=== PATIENT | female | born 1960 | race Asian ===

== ENCOUNTER 2020-04-20 09:21 | Outpatient (REF) | payer BC, SELFPAY ==
[2020-04-20 10:10] LABS: MANUAL DIFF FLAG NO
[2020-04-20 10:15] LABS: Basophils Percent Auto 0.3 % (0-2); Eosinophils Absolute Auto 0.2 X10*3/uL (0.0-0.4); Eosinophils Percent Auto 1.9 % (0-4); Hematocrit 41.5 % (37-47); Hemoglobin 13.8 g/dl (12.0-16.0); Imm Gran Abs Auto 0.02 X10*3/uL (0.00-0.03); Imm Gran Pct Auto 0.2 % (0.0-0.4); Lymphocytes Absolute Auto 1.8 X10*3/uL (1.2-4.9); Lymphocytes Percent Auto 19.3 % (20-40); Mean Corpuscular HGB Conc 33.3 g/dl (31.0-35.0); Mean Corpuscular Hemoglobin 28.6 pg (27.0-33.0); Mean Corpuscular Volume 85.9 fL (80-98); Mean Platelet Volume 9.7 fL (9.4-12.3); Monocytes Absolute Auto 0.5 X10*3/uL (0.1-1.2); Monocytes Percent Auto 5.7 % (2-11); Neutrophils Absolute Auto 6.8 X10*3/uL (2.0-8.3); Neutrophils Percent Auto 72.6 % (45-73); Platelet Count 254 X10*3/uL (160-400); Red Blood Count 4.83 X10*6/uL (4.20-5.50); Red Cell Distribution Width 11.9 % (11.0-16.0); White Blood Count 9.4 X10*3/uL (4.8-10.8)
[2020-04-20 10:41] LABS: Alanine Aminotransferase 73 U/L (0-31); Albumin Level 4.5 g/dL (3.5-5.0); Alkaline Phosphatase 72 U/L (39-117); Anion Gap 16 (12-20); Aspartate Amino Transferase 32 U/L (5-31); Bilirubin Total 0.9 mg/dL (0.0-1.0); Blood Urea Nitrogen 12 mg/dL (9-16); Calcium 9.3 mg/dL (8.4-10.2); Carbon Dioxide 27 mmol/L (22-29); Chloride 102 mmol/L (96-108); Cholesterol 191 mg/dL; Estimated Glomerular Filt Rate > 60; Glucose Fasting 103 mg/dL (60-99); HDL Cholesterol 58 mg/dL; LDL Cholesterol Calculated 83 mg/dl; Potassium 3.5 mmol/L (3.3-5.1); Sodium 141 mmol/L (135-145); Total Protein 7.1 g/dL (6.5-8.0); Triglycerides 254 mg/dL
[2020-04-20 10:44] LABS: Glucose Urine UA NEG (NEG); Leukocyte Esterase Urine NEG (NEG); Nitrite Urine NEG (NEG); PH 6.5 (5.0-8.0); Specific Gravity - Urine <= 1.005 (1.005-1.025); Urine Blood NEG (NEG); Urine Ketones NEG (NEG); Urine Protein NEG (NEG-TRACE)
[2020-04-20 10:46] LABS: Appearance Urine CLEAR; Color Urine YELLOW
[2020-04-20 11:02] LABS: Vitamin D 25-OH Total 38.2 ng/mL (>30)
== END 2020-04-20 09:22 | disposition home or self-care (01) ==
LOC: HO.LAB 09:21
PROVIDERS: PCP Internal Medicine; Visit Provider Internal Medicine
DX: I10 Essential (primary) hypertension (principal); J30.9 Allergic rhinitis, unspecified; E78.00 Pure hypercholesterolemia, unspecified; R73.01 Impaired fasting glucose; E55.9 Vitamin D deficiency, unspecified
CPT/HCPCS: 36415; 80053; 80061; 81003; 82306; 85025

== ENCOUNTER 2020-08-17 10:16 | Outpatient (REF) | payer BC, SELFPAY ==
[2020-08-17 11:00] LABS: MANUAL DIFF FLAG NO
[2020-08-17 11:03] LABS: Glucose Urine UA NEG (NEG); Leukocyte Esterase Urine 1+ (NEG); Nitrite Urine NEG (NEG); PH 7.5 (5.0-8.0); UACC Culture Trigger YES; Urine Blood NEG (NEG); Urine Ketones NEG (NEG); Urine Protein NEG (NEG-TRACE)
[2020-08-17 11:04] LABS: Basophils Percent Auto 0.7 % (0-2); Eosinophils Absolute Auto 0.2 X10*3/uL (0.0-0.4); Eosinophils Percent Auto 3.6 % (0-4); Hematocrit 40.8 % (37-47); Hemoglobin 13.6 g/dl (12.0-16.0); Imm Gran Abs Auto 0.01 X10*3/uL (0.00-0.03); Imm Gran Pct Auto 0.2 % (0.0-0.4); Lymphocytes Absolute Auto 1.8 X10*3/uL (1.2-4.9); Mean Corpuscular HGB Conc 33.3 g/dl (31.0-35.0); Mean Corpuscular Hemoglobin 29.1 pg (27.0-33.0); Mean Corpuscular Volume 87.4 fL (80-98); Mean Platelet Volume 9.7 fL (9.4-12.3); Monocytes Absolute Auto 0.4 X10*3/uL (0.1-1.2); Monocytes Percent Auto 9.4 % (2-11); Neutrophils Absolute Auto 2.1 X10*3/uL (2.0-8.3); Neutrophils Percent Auto 46.1 % (45-73); Platelet Count 267 X10*3/uL (160-400); Red Blood Count 4.67 X10*6/uL (4.20-5.50); Red Cell Distribution Width 12.1 % (11.0-16.0); White Blood Count 4.5 X10*3/uL (4.8-10.8)
[2020-08-17 11:07] LABS: Appearance Urine CLEAR; Color Urine YELLOW
[2020-08-17 11:13] LABS: Estimated Average Glucose 126 mg/dL
[2020-08-17 11:14] LABS: Bacteria Urine TRACE /LPF; RBC Urine 0-2 /HPF (0); Squamous Epithelial Cell Urine 1+ /LPF
[2020-08-17 11:25] LABS: Alanine Aminotransferase 74 U/L (0-31); Albumin Level 4.3 g/dL (3.5-5.0); Alkaline Phosphatase 78 U/L (39-117); Anion Gap 13 (12-20); Aspartate Amino Transferase 34 U/L (5-31); Bilirubin Total 0.8 mg/dL (0.0-1.0); Blood Urea Nitrogen 11 mg/dL (9-16); Calcium 9.8 mg/dL (8.4-10.2); Carbon Dioxide 29 mmol/L (22-29); Chloride 105 mmol/L (96-108); Cholesterol 191 mg/dL; Estimated Glomerular Filt Rate > 60; Glucose Fasting 108 mg/dL (60-99); HDL Cholesterol 50 mg/dL; LDL Cholesterol Calculated 63 mg/dl; Potassium 4.3 mmol/L (3.3-5.1); Sodium 143 mmol/L (135-145); Total Protein 6.8 g/dL (6.5-8.0); Triglycerides 392 mg/dL
[2020-08-17 11:46] LABS: TSH reflex Free T4 0.55 uIU/mL (0.32-4.0)
== END 2020-08-17 10:17 | disposition home or self-care (01) ==
LOC: HO.LAB 10:16
PROVIDERS: PCP Internal Medicine; Visit Provider Internal Medicine
DX: R73.01 Impaired fasting glucose (principal); I10 Essential (primary) hypertension; E78.00 Pure hypercholesterolemia, unspecified; R79.89 Other specified abnormal findings of blood chemistry; E66.3 Overweight
CPT/HCPCS: 36415; 80053; 80061; 81001; 81003; 83036; 84443; 85025; 87086

== ENCOUNTER 2020-12-21 10:16 | Outpatient (REF) | payer BC, SELFPAY ==
[2020-12-21 10:55] LABS: MANUAL DIFF FLAG NO
[2020-12-21 11:01] LABS: Eosinophils Absolute Auto 0.2 X10*3/uL (0.0-0.4); Eosinophils Percent Auto 4.5 % (0-4); Hematocrit 41.3 % (37-47); Hemoglobin 13.8 g/dl (12.0-16.0); Imm Gran Abs Auto 0.01 X10*3/uL (0.00-0.03); Imm Gran Pct Auto 0.2 % (0.0-0.4); Lymphocytes Absolute Auto 1.6 X10*3/uL (1.2-4.9); Mean Corpuscular HGB Conc 33.4 g/dl (31.0-35.0); Mean Corpuscular Hemoglobin 28.8 pg (27.0-33.0); Mean Platelet Volume 9.8 fL (9.4-12.3); Monocytes Absolute Auto 0.4 X10*3/uL (0.1-1.2); Neutrophils Absolute Auto 1.9 X10*3/uL (2.0-8.3); Neutrophils Percent Auto 46.3 % (45-73); Platelet Count 287 X10*3/uL (160-400); Red Cell Distribution Width 12.2 % (11.0-16.0); White Blood Count 4.2 X10*3/uL (4.8-10.8)
[2020-12-21 11:02] LABS: Appearance Urine CLEAR; Color Urine YELLOW; Glucose Urine UA NEG (NEG); Leukocyte Esterase Urine TRACE (NEG); Nitrite Urine NEG (NEG); UACC Culture Trigger YES; Urine Blood NEG (NEG); Urine Ketones NEG (NEG); Urine Protein TRACE MG/DL (NEG-TRACE)
[2020-12-21 11:16] LABS: Estimated Average Glucose 123 mg/dL; Hemoglobin A1C 148.5724 umol/L; Hemoglobin A1c % 5.9 %
[2020-12-21 11:19] LABS: RBC Urine 0 /HPF (0); Squamous Epithelial Cell Urine TRACE /LPF; WBC Urine 0-2 /HPF (0-4)
[2020-12-21 14:05] LABS: Alanine Aminotransferase 47 U/L (0-31); Albumin Level 4.6 g/dL (3.5-5.0); Alkaline Phosphatase 75 U/L (39-117); Anion Gap 14 (12-20); Aspartate Amino Transferase 24 U/L (5-31); Bilirubin Total 0.6 mg/dL (0.0-1.0); Blood Urea Nitrogen 8 mg/dL (9-16); Calcium 9.8 mg/dL (8.4-10.2); Carbon Dioxide 26 mmol/L (22-29); Chloride 104 mmol/L (96-108); Cholesterol 175 mg/dL; Estimated Glomerular Filt Rate > 60; Glucose Fasting 104 mg/dL (60-99); HDL Cholesterol 54 mg/dL; LDL Cholesterol Calculated 85 mg/dl; Potassium 3.9 mmol/L (3.3-5.1); Sodium 140 mmol/L (135-145); Total Protein 7.2 g/dL (6.5-8.0); Triglycerides 184 mg/dL
[2020-12-21 14:18] LABS: Uric Acid 6.9 mg/dL (2.4-5.7)
[2020-12-21 14:23] LABS: TSH reflex Free T4 0.74 uIU/mL (0.32-4.0); Vitamin D 25-OH Total 45.4 ng/mL (>30)
== END 2020-12-21 10:17 | disposition home or self-care (01) ==
LOC: HO.LAB 10:16
PROVIDERS: PCP Internal Medicine; Visit Provider Internal Medicine
DX: I10 Essential (primary) hypertension (principal); E66.3 Overweight; E78.00 Pure hypercholesterolemia, unspecified; R73.01 Impaired fasting glucose; E79.0 Hyperuricemia without signs of inflammatory arthritis and tophaceous disease; J30.9 Allergic rhinitis, unspecified; E55.9 Vitamin D deficiency, unspecified
CPT/HCPCS: 36415; 80053; 80061; 81001; 81003; 82306; 83036; 84443; 84550; 85025; 87086

== ENCOUNTER 2021-05-10 08:29 | Outpatient (REF) | payer OTHER, SELFPAY ==
[2021-05-10 08:58] LABS: MANUAL DIFF FLAG NO
[2021-05-10 09:35] LABS: Appearance Urine CLEAR; Color Urine YELLOW; Glucose Urine UA NEG (NEG); Leukocyte Esterase Urine TRACE (NEG); Nitrite Urine NEG (NEG); UACC Culture Trigger YES; Urine Blood NEG (NEG); Urine Ketones NEG (NEG); Urine Protein NEG (NEG-TRACE)
[2021-05-10 09:36] LABS: Basophils Percent Auto 0.9 % (0-2); Eosinophils Absolute Auto 0.1 X10*3/uL (0.0-0.4); Eosinophils Percent Auto 3.2 % (0-4); Hematocrit 42.9 % (37.0-47.0); Imm Gran Abs Auto 0.01 X10*3/uL (0.00-0.03); Imm Gran Pct Auto 0.2 % (0.0-0.4); Lymphocytes Absolute Auto 1.6 X10*3/uL (1.2-4.9); Lymphocytes Percent Auto 36.8 % (20-40); Mean Corpuscular HGB Conc 32.6 g/dl (31.0-35.0); Mean Corpuscular Hemoglobin 28.8 pg (27.0-33.0); Mean Corpuscular Volume 88.3 fL (80.0-98.0); Mean Platelet Volume 9.8 fL (9.4-12.3); Monocytes Absolute Auto 0.4 X10*3/uL (0.1-1.2); Monocytes Percent Auto 9.3 % (2-11); Neutrophils Absolute Auto 2.1 x10*3/uL (2.0-8.3); Neutrophils Percent Auto 49.6 % (45-73); Platelet Count 259 X10*3/uL (160-400); Red Blood Count 4.86 X10*6/uL (4.20-5.50); White Blood Count 4.3 X10*3/uL (4.8-10.8)
[2021-05-10 09:43] LABS: Estimated Average Glucose 126 mg/dL
[2021-05-10 09:51] LABS: Alanine Aminotransferase 87 U/L (0-31); Albumin Level 4.3 g/dL (3.5-5.0); Anion Gap 13 (12-20); Aspartate Amino Transferase 36 U/L (5-31); Bilirubin Total 0.7 mg/dL (0.0-1.0); Blood Urea Nitrogen 11 mg/dL (9-16); Calcium 9.7 mg/dL (8.4-10.2); Carbon Dioxide 28 mmol/L (22-29); Chloride 105 mmol/L (96-108); Cholesterol 180 mg/dL; Estimated Glomerular Filt Rate > 60; Glucose Fasting 109 mg/dL (60-99); HDL Cholesterol 62 mg/dL; Potassium 3.9 mmol/L (3.3-5.1); Sodium 142 mmol/L (135-145); Total Protein 6.9 g/dL (6.5-8.0); Triglycerides 146 mg/dL
[2021-05-10 09:52] LABS: Alkaline Phosphatase 60 U/L (39-117); LDL Cholesterol Calculated 89 mg/dl
[2021-05-10 10:14] LABS: TSH reflex Free T4 0.55 uIU/mL (0.32-4.0); Vitamin D 25-OH Total 35.9 ng/mL (>30)
[2021-05-10 10:23] LABS: RBC Urine 0-2 /HPF (0); Squamous Epithelial Cell Urine TRACE /LPF; WBC Urine 0-2 /HPF (0-4)
== END 2021-05-10 08:30 | disposition home or self-care (01) ==
LOC: HO.LAB 08:29
PROVIDERS: PCP Internal Medicine; Visit Provider Internal Medicine
DX: I10 Essential (primary) hypertension (principal); E11.9 Type 2 diabetes mellitus without complications; E78.00 Pure hypercholesterolemia, unspecified; E55.9 Vitamin D deficiency, unspecified
CPT/HCPCS: 36415; 80053; 80061; 81001; 82306; 83036; 84443; 85025; 87086

== ENCOUNTER 2021-08-30 09:41 | Outpatient (REF) | payer OTHER, SELFPAY ==
[2021-08-30 10:00] LABS: MANUAL DIFF FLAG NO
[2021-08-30 10:13] LABS: Basophils Percent Auto 0.7 % (0-2); Eosinophils Absolute Auto 0.2 X10*3/uL (0.0-0.4); Eosinophils Percent Auto 3.7 % (0-4); Hematocrit 42.4 % (37.0-47.0); Hemoglobin 14.3 g/dl (12.0-16.0); Imm Gran Abs Auto 0.01 X10*3/uL (0.00-0.03); Imm Gran Pct Auto 0.2 % (0.0-0.4); Lymphocytes Absolute Auto 1.7 X10*3/uL (1.2-4.9); Mean Corpuscular HGB Conc 33.7 g/dl (31.0-35.0); Mean Corpuscular Hemoglobin 29.4 pg (27.0-33.0); Mean Corpuscular Volume 87.1 fL (80.0-98.0); Mean Platelet Volume 9.5 fL (9.4-12.3); Monocytes Absolute Auto 0.4 X10*3/uL (0.1-1.2); Monocytes Percent Auto 9.6 % (2-11); Neutrophils Percent Auto 45.8 % (45-73); Platelet Count 245 X10*3/uL (160-400); Red Blood Count 4.87 X10*6/uL (4.20-5.50); White Blood Count 4.3 X10*3/uL (4.8-10.8)
[2021-08-30 10:35] LABS: Estimated Average Glucose 131 mg/dL; Hemoglobin A1c % 6.2 %
[2021-08-30 10:42] LABS: Alanine Aminotransferase 62 U/L (0-31); Albumin Level 4.5 g/dL (3.5-5.0); Alkaline Phosphatase 64 U/L (39-117); Anion Gap 11 (12-20); Aspartate Amino Transferase 30 U/L (5-31); Bilirubin Total 0.7 mg/dL (0.0-1.0); Blood Urea Nitrogen 8 mg/dL (9-16); Calcium 9.5 mg/dL (8.4-10.2); Carbon Dioxide 27 mmol/L (22-29); Chloride 106 mmol/L (96-108); Cholesterol 195 mg/dL; Estimated Glomerular Filt Rate > 60; Glucose Fasting 108 mg/dL (60-99); HDL Cholesterol 61 mg/dL; LDL Cholesterol Calculated 79 mg/dl; Potassium 3.9 mmol/L (3.3-5.1); Sodium 140 mmol/L (135-145); Total Protein 7.2 g/dL (6.5-8.0); Triglycerides 275 mg/dL
[2021-08-30 11:04] LABS: TSH reflex Free T4 0.78 uIU/mL (0.32-4.0); Vitamin D 25-OH Total 40.3 ng/mL (>30)
[2021-08-30 11:56] LABS: Appearance Urine CLEAR; Color Urine YELLOW; Glucose Urine UA NEG (NEG); Leukocyte Esterase Urine NEG (NEG); Nitrite Urine NEG (NEG); PH 7.5 (5.0-8.0); Urine Blood NEG (NEG); Urine Ketones NEG (NEG); Urine Protein NEG (NEG-TRACE)
== END 2021-08-30 09:42 | disposition home or self-care (01) ==
LOC: HO.LAB 09:41
PROVIDERS: PCP Internal Medicine; Visit Provider Internal Medicine
DX: R73.01 Impaired fasting glucose (principal); I10 Essential (primary) hypertension; E55.9 Vitamin D deficiency, unspecified; E78.00 Pure hypercholesterolemia, unspecified
CPT/HCPCS: 36415; 80053; 80061; 81003; 82306; 83036; 84443; 85025

== ENCOUNTER 2022-01-06 07:04 | Outpatient (REF) | payer OTHER, SELFPAY ==
[2022-01-06 07:20] LABS: MANUAL DIFF FLAG NO
[2022-01-06 07:32] LABS: Eosinophils Absolute Auto 0.2 X10*3/uL (0.0-0.4); Eosinophils Percent Auto 4.2 % (0-4); Hematocrit 43.6 % (37.0-47.0); Hemoglobin 14.4 g/dl (12.0-16.0); Imm Gran Abs Auto 0.01 X10*3/uL (0.00-0.03); Imm Gran Pct Auto 0.3 % (0.0-0.4); Lymphocytes Absolute Auto 1.7 X10*3/uL (1.2-4.9); Lymphocytes Percent Auto 43.1 % (20-40); Mean Corpuscular Volume 87.9 fL (80.0-98.0); Mean Platelet Volume 9.1 fL (9.4-12.3); Monocytes Absolute Auto 0.4 X10*3/uL (0.1-1.2); Monocytes Percent Auto 9.4 % (2-11); Neutrophils Absolute Auto 1.6 x10*3/uL (2.0-8.3); Platelet Count 227 X10*3/uL (160-400); Red Blood Count 4.96 X10*6/uL (4.20-5.50); Red Cell Distribution Width 11.7 % (11.0-16.0); White Blood Count 3.9 X10*3/uL (4.8-10.8)
[2022-01-06 09:42] LABS: Appearance Urine Clear; Color Urine Dark Yellow; Glucose Urine UA Negative (Negative); Leukocyte Esterase Urine Negative (Negative); Nitrite Urine Negative (Negative); PH 7.5 (5.0-9.0); Specific Gravity - Urine 1.015 (1.005-1.025); Urine Blood Negative (Negative); Urine Ketones Negative (Negative); Urine Protein Negative (Neg-Trace)
[2022-01-06 10:43] LABS: Estimated Average Glucose 123 mg/dL; Hemoglobin A1C 150.9849 umol/L; Hemoglobin A1c % 5.9 %
[2022-01-06 13:35] LABS: Alanine Aminotransferase 83 U/L (0-31); Albumin Level 4.6 g/dL (3.5-5.0); Alkaline Phosphatase 57 U/L (39-117); Anion Gap 17 (12-20); Aspartate Amino Transferase 40 U/L (5-31); Bilirubin Total 0.8 mg/dL (0.0-1.0); Blood Urea Nitrogen 8 mg/dL (9-16); Calcium 9.6 mg/dL (8.4-10.2); Carbon Dioxide 25 mmol/L (22-29); Chloride 105 mmol/L (96-108); Cholesterol 171 mg/dL; Estimated Glomerular Filt Rate > 60; HDL Cholesterol 60 mg/dL; LDL Cholesterol Calculated 83 mg/dl; Potassium 3.9 mmol/L (3.3-5.1); Sodium 143 mmol/L (135-145); Total Protein 7.2 g/dL (6.5-8.0); Triglycerides 144 mg/dL
[2022-01-06 13:55] LABS: TSH reflex Free T4 0.93 uIU/mL (0.32-4.0); Vitamin D 25-OH Total 59.3 ng/mL (>30)
[2022-01-06 14:07] LABS: Glucose Fasting 108 mg/dL (60-99)
== END 2022-01-06 07:05 | disposition home or self-care (01) ==
LOC: HO.LAB 07:04
PROVIDERS: PCP Internal Medicine; Visit Provider Internal Medicine
DX: I10 Essential (primary) hypertension (principal); E55.9 Vitamin D deficiency, unspecified; E78.00 Pure hypercholesterolemia, unspecified; R73.01 Impaired fasting glucose
CPT/HCPCS: 36415; 80053; 80061; 81003; 82306; 83036; 84443; 85025

== ENCOUNTER 2022-01-12 11:47 | Outpatient (REF) | payer OTHER, SELFPAY ==
[2022-01-12 13:31] LABS: HBS Num1 10.35 mIU/mL (0-7.99); HBc Num1 0.09 S/CO (0.00-0.79); HBsAGNum1 0.14 S/CO (0.00-0.99); Hepatitis B Core Antibody Nonreactive (Nonreactive); Hepatitis B Surface Antigen Negative (Negative); ~HepC Num1 0.12 S/CO (0.00-0.79); ~Hepatitis C Antibody Nonreactive (Nonreactive)
[2022-01-13 09:55] LABS: HBS Num2 8.38 mIU/mL (0-7.99); HBS Num3 9.17 mIU/mL (0-7.99); ~Hepatitis B Surface Antibody GRAYZONE (Nonreactive)
[2022-01-14 07:45] LABS: Hepatitis A Antibody IgM 0.37 Index (0-0.79); ~Hepatitis A Antibody IgM Nonreactive (Nonreactive)
== END 2022-01-12 11:48 | disposition home or self-care (01) ==
LOC: HO.LAB 11:47
PROVIDERS: PCP Internal Medicine; Visit Provider Internal Medicine
DX: R79.89 Other specified abnormal findings of blood chemistry (principal)
CPT/HCPCS: 36415; 86704; 86706; 86709; 86803; 87340

== ENCOUNTER 2022-03-28 08:59 | Outpatient (REF) | payer OTHER, SELFPAY ==
[2022-03-28 09:13] LABS: MANUAL DIFF FLAG NO
[2022-03-28 09:23] LABS: Eosinophils Absolute Auto 0.1 X10*3/uL (0.0-0.4); Eosinophils Percent Auto 3.1 % (0-4); Hematocrit 42.3 % (37.0-47.0); Hemoglobin 14.3 g/dl (12.0-16.0); Lymphocytes Absolute Auto 1.7 X10*3/uL (1.2-4.9); Lymphocytes Percent Auto 43.2 % (20-40); Mean Corpuscular HGB Conc 33.8 g/dl (31.0-35.0); Mean Corpuscular Hemoglobin 29.1 pg (27.0-33.0); Mean Corpuscular Volume 86.2 fL (80.0-98.0); Mean Platelet Volume 9.6 fL (9.4-12.3); Monocytes Absolute Auto 0.4 X10*3/uL (0.1-1.2); Neutrophils Absolute Auto 1.7 x10*3/uL (2.0-8.3); Neutrophils Percent Auto 42.7 % (45-73); Platelet Count 238 X10*3/uL (160-400); Red Blood Count 4.91 X10*6/uL (4.20-5.50); Red Cell Distribution Width 11.8 % (11.0-16.0); White Blood Count 3.9 X10*3/uL (4.8-10.8)
[2022-03-28 09:29] LABS: Appearance Urine Clear; Color Urine Yellow; Glucose Urine UA Negative (Negative); Leukocyte Esterase Urine Negative (Negative); Nitrite Urine Negative (Negative); Urine Blood Negative (Negative); Urine Ketones Negative (Negative); Urine Protein Negative (Neg-Trace)
[2022-03-28 09:31] LABS: Estimated Average Glucose 131 mg/dL; Hemoglobin A1c % 6.2 %
[2022-03-28 09:50] LABS: Alanine Aminotransferase 62 U/L (0-31); Albumin Level 4.3 g/dL (3.5-5.0); Alkaline Phosphatase 56 U/L (39-117); Anion Gap 13 (12-20); Aspartate Amino Transferase 32 U/L (5-31); Blood Urea Nitrogen 9 mg/dL (9-16); Calcium 9.6 mg/dL (8.4-10.2); Carbon Dioxide 29 mmol/L (22-29); Chloride 104 mmol/L (96-108); Cholesterol 167 mg/dL; Estimated Glomerular Filt Rate > 60; Glucose Fasting 114 mg/dL (60-99); HDL Cholesterol 50 mg/dL; LDL Cholesterol Calculated 91 mg/dl; Potassium 3.6 mmol/L (3.3-5.1); Sodium 142 mmol/L (135-145); Total Protein 6.8 g/dL (6.5-8.0); Triglycerides 133 mg/dL
[2022-03-28 10:07] LABS: TSH reflex Free T4 0.84 uIU/mL (0.32-4.0); Vitamin D 25-OH Total 59.2 ng/mL (>30)
== END 2022-03-28 09:00 | disposition home or self-care (01) ==
LOC: HO.LAB 08:59
PROVIDERS: PCP Internal Medicine; Visit Provider Internal Medicine
DX: I10 Essential (primary) hypertension (principal); E11.9 Type 2 diabetes mellitus without complications; R30.0 Dysuria; E55.9 Vitamin D deficiency, unspecified; E78.00 Pure hypercholesterolemia, unspecified
CPT/HCPCS: 36415; 80053; 80061; 81003; 82306; 83036; 84443; 85025

== ENCOUNTER 2022-07-25 08:27 | Outpatient (REF) | payer OTHER, SELFPAY ==
[2022-07-25 08:44] LABS: MANUAL DIFF FLAG NO
[2022-07-25 09:15] LABS: Basophils Absolute Auto 0.1 X10*3/uL (0.0-0.2); Basophils Percent Auto 1.1 % (0-2); Eosinophils Absolute Auto 0.2 X10*3/uL (0.0-0.4); Eosinophils Percent Auto 3.4 % (0-4); Hematocrit 40.8 % (37.0-47.0); Hemoglobin 14.2 g/dl (12.0-16.0); Imm Gran Abs Auto 0.01 X10*3/uL (0.00-0.03); Imm Gran Pct Auto 0.2 % (0.0-0.4); Lymphocytes Absolute Auto 1.8 X10*3/uL (1.2-4.9); Lymphocytes Percent Auto 37.9 % (20-40); Mean Corpuscular HGB Conc 34.8 g/dl (31.0-35.0); Mean Corpuscular Hemoglobin 29.7 pg (27.0-33.0); Mean Corpuscular Volume 85.4 fL (80.0-98.0); Monocytes Absolute Auto 0.4 X10*3/uL (0.1-1.2); Monocytes Percent Auto 7.9 % (2-11); Neutrophils Absolute Auto 2.3 x10*3/uL (2.0-8.3); Neutrophils Percent Auto 49.5 % (45-73); Platelet Count 277 X10*3/uL (160-400); Red Blood Count 4.78 X10*6/uL (4.20-5.50); Red Cell Distribution Width 11.9 % (11.0-16.0); White Blood Count 4.7 X10*3/uL (4.8-10.8)
[2022-07-25 09:40] LABS: Estimated Average Glucose 123 mg/dL; Hemoglobin A1C 151.8327 umol/L; Hemoglobin A1c % 5.9 %
[2022-07-25 09:49] LABS: Alanine Aminotransferase 74 U/L (0-31); Albumin Level 4.2 g/dL (3.5-5.0); Alkaline Phosphatase 67 U/L (39-117); Anion Gap 12 (12-20); Aspartate Amino Transferase 31 U/L (5-31); Bilirubin Total 0.8 mg/dL (0.0-1.0); Blood Urea Nitrogen 9 mg/dL (9-16); Calcium 9.6 mg/dL (8.4-10.2); Carbon Dioxide 29 mmol/L (22-29); Chloride 105 mmol/L (96-108); Cholesterol 171 mg/dL; Estimated Glomerular Filt Rate > 60; Glucose Fasting 106 mg/dL (60-99); HDL Cholesterol 52 mg/dL; LDL Cholesterol Calculated 58 mg/dl; Potassium 3.7 mmol/L (3.3-5.1); Sodium 142 mmol/L (135-145); Total Protein 6.8 g/dL (6.5-8.0); Triglycerides 305 mg/dL
[2022-07-25 10:10] LABS: TSH reflex Free T4 0.78 uIU/mL (0.32-4.0); Vitamin D 25-OH Total 53.1 ng/mL (>30)
[2022-07-25 10:14] LABS: Appearance Urine Clear; Color Urine Yellow; Glucose Urine UA Negative (Negative); Leukocyte Esterase Urine Trace (Negative); Nitrite Urine Negative (Negative); PH 6.5 (5.0-9.0); UMIC TRIGGER UACC YES; Urine Blood Negative (Negative); Urine Ketones Negative (Negative); Urine Protein Negative (Neg-Trace)
[2022-07-25 10:19] LABS: Bacteria Urine None Seen (None Seen); Hyaline Casts Urine 0-2 /LPF (0-2); RBC Urine 0-2 /HPF (0-2); Squamous Epithelial Cell Urine 0-2 /HPF (0-2); WBC Urine 0-5 /HPF (0-5)
[2022-07-25 10:48] LABS: Creatinine Urine 65.21 mg/dL; Microalbumin Urine < 5.0 mg/L
== END 2022-07-25 08:28 | disposition home or self-care (01) ==
LOC: HO.LAB 08:27
PROVIDERS: PCP Internal Medicine; Visit Provider Internal Medicine
DX: R30.0 Dysuria (principal); I10 Essential (primary) hypertension; E11.9 Type 2 diabetes mellitus without complications; E55.9 Vitamin D deficiency, unspecified; E78.00 Pure hypercholesterolemia, unspecified
CPT/HCPCS: 36415; 80053; 80061; 81001; 82043; 82306; 83036; 84443; 85025

== ENCOUNTER 2022-11-28 09:40 | Outpatient (REF) | payer OTHER, SELFPAY ==
[2022-11-28 10:04] LABS: MANUAL DIFF FLAG NO
[2022-11-28 10:29] LABS: Eosinophils Absolute Auto 0.2 X10*3/uL (0.0-0.4); Eosinophils Percent Auto 3.8 % (0-4); Hematocrit 43.4 % (37.0-47.0); Hemoglobin 14.6 g/dl (12.0-16.0); Lymphocytes Absolute Auto 1.6 X10*3/uL (1.2-4.9); Lymphocytes Percent Auto 37.7 % (20-40); Mean Corpuscular HGB Conc 33.6 g/dl (31.0-35.0); Mean Corpuscular Volume 86.1 fL (80.0-98.0); Mean Platelet Volume 9.6 fL (9.4-12.3); Monocytes Absolute Auto 0.4 X10*3/uL (0.1-1.2); Monocytes Percent Auto 9.5 % (2-11); Platelet Count 253 X10*3/uL (160-400); Red Blood Count 5.04 X10*6/uL (4.20-5.50); Red Cell Distribution Width 12.3 % (11.0-16.0); White Blood Count 4.2 X10*3/uL (4.8-10.8)
[2022-11-28 10:38] LABS: Estimated Average Glucose 126 mg/dL
[2022-11-28 10:44] LABS: Alanine Aminotransferase 64 U/L (0-31); Albumin Level 4.3 g/dL (3.5-5.0); Alkaline Phosphatase 66 U/L (39-117); Anion Gap 14 (12-20); Aspartate Amino Transferase 31 U/L (5-31); Bilirubin Total 0.5 mg/dL (0.0-1.0); Blood Urea Nitrogen 9 mg/dL (9-16); Calcium 9.7 mg/dL (8.4-10.2); Carbon Dioxide 29 mmol/L (22-29); Chloride 104 mmol/L (96-108); Cholesterol 267 mg/dL (<200); Estimated Glomerular Filt Rate > 60; Glucose Random 111 mg/dL (60-115); HDL Cholesterol 52 mg/dL (>40); LDL Cholesterol Calculated 136 mg/dL (<100); Potassium 3.8 mmol/L (3.3-5.1); Sodium 143 mmol/L (135-145); Total Protein 7.2 g/dL (6.5-8.0); Triglycerides 399 mg/dL (<150)
[2022-11-28 10:52] LABS: Thyroid Stimulating Hormone 0.71 uIU/mL (0.32-4.0); Vitamin D 25-OH Total 67.7 ng/mL (>30)
[2022-11-28 11:27] LABS: Appearance Urine Clear; Color Urine Yellow; Glucose Urine UA Negative (Negative); Leukocyte Esterase Urine Negative (Negative); Nitrite Urine Negative (Negative); PH 7.5 (5.0-9.0); Specific Gravity - Urine <= 1.005 (1.005-1.025); Urine Blood Negative (Negative); Urine Ketones Negative (Negative); Urine Protein Negative (Neg-Trace)
== END 2022-11-28 09:41 | disposition home or self-care (01) ==
LOC: HO.LAB 09:40
PROVIDERS: PCP Internal Medicine; Visit Provider Internal Medicine
DX: Z13.89 Encounter for screening for other disorder (principal)
CPT/HCPCS: 36415; 80053; 80061; 81003; 82306; 83036; 84443; 85025

== ENCOUNTER 2022-12-03 09:38 | Outpatient (AMB) | payer OTHER, SELFPAY ==
[2022-12-03 09:51] VITALS: BP 132/90; PULSE 71; O2SAT 98; BMI 29.3
--- NOTE | 2022-12-03 09:51 | MHC.PC.OV ---
Vital Signs 12/03/22 09:51 Height 5 ft 3 in Weight 165 lb 6 oz BMI 29.3 BP 132/90 H Blood Pressure Location Lt brachial Position Sitting Pulse 71 Pulse Source Pulse Oximeter Pulse Oximetry (%) 98 Oxygen Delivery Method Room Air Intake Visit Reasons: HTN, hyperlipidemia, IFG, elevated LFTs Hat Maker Required: No Accompanied by: Self / Same As Patient Allergies latex Allergy (Unknown, Verified 12/03/22 10:23) Unknown diphenhydramine [From BENADRYL] Adverse Reaction (Severe, Verified 12/03/22 10:23) TACHYCARDIA/PALPITATIONS Medication List - Last Reconciled 12/03/22 by Zachariah Hickman MD ascorbate calcium (vitamin C) 500 mg PO DAILY atorvastatin 20 mg PO DAILY 90 days cholecalciferol (vitamin D3) (Vitamin D3) 25 mcg PO DAILY coenzyme Q10 (Ultra CoQ10) 75 mg PO DAILY garlic 1,000 mg PO DAILY glucosamine HCl 1,500 mg PO DAILY hydrochlorothiazide 25 mg PO DAILY 90 days L. acidophilus/Bifid. animalis 2.5 billion cell (Daily Probiotic) caps PO .QD loratadine 10 mg PO DAILY PRN losartan 50 mg PO DAILY 90 days magnesium oxide 400 mg PO DAILY vitamin B complex 1 tab PO DAILY Tobacco use date assessed: 12/03/22 Dental Screening Dental Screen Date: 12/03/22 Did you have a dental visit in the last 12 months?: Yes Did you have a dental problem in the last 6 months where you did not have access to dental care?: No Was dental information given to patient?: Patient has dentist HPI HTN, hyperlipidemia, IFG, elevated LFTs HPI Details Patient comes in today for her follow up visit States that she feels okay Admits to stopping her Atorvastatin about 8 weeks ago as she was experiencing increased muscle pains, especially on her legs States that her leg and muscle pains resolved gradually after she stopped taking her Atorvastatin She denies any headaches or dizziness Denies any chest pains, no SOB No nausea/vomiting, no abdominal pain No change in bowel habits noted Had her follow up labs done last week - to discuss her results [facility] Medical History Overweight (BMI 25.0-29.9) Anxiety Insomnia Elevated LFTs Allergic rhinitis Vitamin D deficiency Pure hypercholesterolemia Impaired fasting glucose Benign essential hypertension Surgical History Status post right oophorectomy (~2006) Family History Father Colon cancer Hypertension Stroke Mother Hypertension Heart attack Stroke Diabetes mellitus Daughter In good health Son In good health Son In good health Son In good health Sister No problems noted. Brother No problems noted. 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 1. Little interest or pleasure in doing things: not at all 2. Feeling down, depressed, or hopeless: not at all 3. Trouble falling or staying asleep, or sleeping too much: not at all 4. Feeling tired or having little energy: not at all 5. Poor appetite or overeating: not at all 6. Feeling bad about yourself - or that you are a failure or have let yourself or your family down: not at all 7. Trouble concentrating on things, such as reading the newspaper or watching television: not at all 8. Moving or speaking so slowly that other people could have noticed. Or the opposite - being so fidgety or restless that you have been moving around a lot more than usual: not at all 9. Thoughts that you would be better off or of hurting yourself in some way: not at all Total score: 0 Depression Screening Interpretation: Negative Depression Screening Done: Yes [id number] - PHQ-9 Billing: Yes Source: Developed by Drs. Cam Vizcarra, Aileen Cardoza, Tim Lao and colleagues, with an educational quinn from [employer]. Thrive Questionnaire Date Thrive assessed: 12/03/22 I am a: Patient What is your living situation today?: I have a steady place to live Within the past 12 months, did the food you bought not last and you didn't have the money to get more?: Never true Within the past 12 months, did you worry whether your food would run out before you got money to buy more?: Never true Do you have trouble paying for medicines?: No Do you have trouble getting transportation to medical appointments?: No Do you have trouble paying your heating and electricity bill?: No Do you have trouble taking care of your child, family member or friend?: No Do you have trouble with day-to-day activities such as bathing, preparing meals, shopping, managing finances, etc.?: No Are you currently unemployed and looking for a job?: No Are you interested in more education?: No Please select the resources that you would like help with: None Currently or been in a relationship where the following occur: no concerns reported AUDIT C Alcohol Use Questionnaire (AUDIT-C) 1. How often do you have a drink containing alcohol?: Never 3. How often do you have six or more drinks on one occasion?: Never Total Score: 0 Score Reviewed/Action Taken: Yes GENARO-7 AMB Questionnaire GENARO-7 Date GENARO - 7 assessed: 12/03/22 Feeling nervous, anxious, or on edge: 0 = Not at all Not being able to stop or control worryin = Not at all Worrying too much about different things: 0 = Not at all Trouble relaxin = Not at all Being so restless that it is hard to sit still: 0 = Not at all Becoming easily annoyed or irritable: 0 = Not at all Feeling afraid as if something awful might happen: 0 = Not at all Total GENARO-7 score (0-4 normal; 5-9 mild; 10-14 moderate; 15-21 severe): 0 Source: Developed by Drs. Cam Vizcarra, Aileen Cardoza, Tim Lao and colleagues, with an educational quinn from [employer]. Review of Systems Const Denies chills, Denies fatigue, Denies fever(s) and Denies headache(s) ENT Denies dysphagia, Denies dizziness, Denies otalgia, Denies headache(s), Denies odynophagia and Denies sore throat Card Denies chest pain, Denies palpitations and Denies dyspnea Resp Denies chest congestion, Denies cough and Denies dyspnea GI Denies abdominal pain, Denies constipation, Denies dysphagia, Denies heartburn, Denies diarrhea, Denies nausea, Denies odynophagia and Denies vomiting Denies difficulty voiding, Denies nocturia and Denies dysuria Musc Reports arthralgias (on and off in the right shoulder - (+) Hx of frozen shoulder ) Skin/Breast Denies rash Neuro Denies dizziness and Denies headache(s) Endo Denies fatigue and Denies palpitations Physical exam (Primary Care) Vital Signs: Last Vital Signs Pulse 71 12/03/22 09:51 BP 132/90 H 12/03/22 09:51 Pulse Ox 98 12/03/22 09:51 Oxygen Delivery Method Room Air 12/03/22 09:51 BMI result Body Mass Index 29.3 Tobacco/Smoking Status: Tobacco use Status Tobacco use date assessed 12/03/22 12/03/22 09:56 Patient Tobacco Use Status Never used Tobacco 12/03/22 09:56 e-Cigarette/Vaping Use Never Used 12/03/22 09:56 PHQ-9: PHQ-9 Score PHQ-9: Total score 0 12/03/22 10:32 Depression Screening Interpretation: Negative Thrive Assessment: Date of Thrive Assessment Date Thrive assessed 12/03/22 12/03/22 09:56 Currently or been in a relationship where the following occur: no concerns reported Const General: no acute distress and alert HENMT Ears: TM's normal bilaterally and EAC's normal Throat: Yes posterior oropharynx normal and Yes tonsils normal (no TP congestion noted) Neck Neck: Yes no lymphadenopathy and Yes supple Resp Auscultation: clear to auscultation bilaterally, no rales and no wheezes Cardio Rate: regular rate Rhythm: regular rhythm Heart sounds: no murmurs GI Palpation (GI): Soft to palpation and nontender Auscultation: normal bowel sounds General: Yes no CVA tenderness Back/Spine/Pelvis Back: no CVA tenderness Skin Rashes: no rashes Extrem General: Yes no clubbing, cyanosis or edema Results Reviewed Results Reviewed: Laboratory Tests 11/28/22 11/28/22 11/28/22 10:03 10:03 11:03 WBC 4.2 L Hgb 14.6 Hct 43.4 Plt Count 253 Sodium 143 Potassium 3.8 Creatinine 0.68 Estimated GFR > 60 Random Glucose 111 Hemoglobin A1c % 6.0 Calcium 9.7 AST 31 ALT 64 H Triglycerides 399 H Cholesterol 267 H LDL Cholesterol, Calc 136 H HDL Cholesterol 52 25-OH Vitamin D Total 67.7 TSH 0.71 Ur Specific [employer] <= 1.005 Urine Protein Negative Urine Glucose (UA) Negative Urine Blood Negative Assessment and Plan Assessment & Plan (1) Pure hypercholesterolemia: Code(s): E78.00 - Pure hypercholesterolemia, unspecified Plan: Results of her labs done last week reviewed and discussed with patient - cautioned that her cholesterol levels have increased significantly from previous since she stopped taking her Atorvastatin a few weeks ago Reinforced low cholesterol diet Will try switching her to Rosuvastatin 5 mg QD Will recheck her labs and fasting lipids in 4 months follow-up (2) Benign essential hypertension: Code(s): I10 - Essential (primary) hypertension Plan: Reinforced low sodium diet - goal is systolic BP of at least 120 to 130 mm or less Continue Losartan 50 mg QD and HCTZ 25 mg QD Patient is advised to continue monitoring her blood pressure regularly (3) Impaired fasting glucose: Code(s): R73.01 - Impaired fasting glucose Plan: HgbA1c was at 6.0% on her labs done last week; was at 5.9% a few months ago Reinforced low calorie diet /exercise as tolerated (4) Elevated LFTs: Code(s): R79.89 - Other specified abnormal findings of blood chemistry Plan: Cautioned that her ALT remains elevated on her recent labs; AST remains normal Hepatitis profile done last year came back negative Abdominal US done at [facility] in April 2022 revealed (+) hepatosteatosis; US is otherwise normal Patient is encouraged to continue to try to lose weight and exercise regularly - reassured that her LFTs should return to normal with weight loss Will continue to monitor her LFTs regularly (5) Allergic rhinitis: Code(s): J30.9 - Allergic rhinitis, unspecified Qualifiers: Allergic rhinitis seasonality: unspecified Allergic rhinitis trigger: unspecified Qualified Code(s): J30.9 - Allergic rhinitis, unspecified Plan: Continue Loratadine 10 mg QD as needed and Fluticasone nasal spray 50 mcg 1 spray in each nostril daily as needed Patient has not needed to use her Albuterol inhaler over the past few months (6) Vitamin D deficiency: Code(s): E55.9 - Vitamin D deficiency, unspecified Plan: Continue Vitamin D3 1000 units QD (7) Insomnia: Code(s): G47.00 - Insomnia, unspecified Qualifiers: Insomnia type: unspecified Qualified Code(s): G47.00 - Insomnia, unspecified Plan: Sleep hygiene reinforced Continue Trazodone 50 mg once a day at bedtime as needed (8) Anxiety: Code(s): F41.9 - Anxiety disorder, unspecified Plan: Continue Lorazepam 0.5 mg 1 to 2 times a day as needed (9) Overweight (BMI 25.0-29.9): Code(s): E66.3 - Overweight Plan: Reinforced diet/exercise as tolerated/lose weight Plan Follow up in 4 months Orders: Orders Lipid Panel 4 Months E78.00 - Pure hypercholesterolemia, unspecified Hemoglobin A1c 4 Months R73.01 - Impaired fasting glucose Complete Blood Count Auto Diff 4 Months I10 - Essential (primary) hypertension Comprehensive [place]. Panel Fast 4 Months E78.00 - Pure hypercholesterolemia, unspecified TSH reflex Free T4 4 Months E78.00 - Pure hypercholesterolemia, unspecified UA CC w/rflx Micro + Cult 4 Months R30.0 - Dysuria Vitamin D 25-OH Total 4 Months E55.9 - Vitamin D deficiency, unspecified CK, Total+Isoenzymes, Serum 4 Months M79.10 - Myalgia, unspecified site Medications: New rosuvastatin 5 mg PO DAILY 30 tabs 3RF 30 days Discontinued atorvastatin Discontinued Reason: Doctor's Order 20 mg PO DAILY 90 days 90 tabs 3RF E78.00 - Pure hypercholesterolemia, unspecified Coding Level of Care Code Est Pt Level 4 (84567) Diagnoses Pure hypercholesterolemia E78.00 Benign essential hypertension I10 Impaired fasting glucose R73.01 Elevated LFTs R79.89 Allergic rhinitis, unspecified seasonality, unspecified trigger J30.9 Allergic rhinitis seasonality: unspecified Allergic rhinitis trigger: unspecified Vitamin D deficiency E55.9 Insomnia, unspecified type G47.00 Insomnia type: unspecified Anxiety F41.9 Overweight (BMI 25.0-29.9) E66.3
== END 2022-12-03 10:45 | disposition home or self-care (01) ==
PROVIDERS: PCP Internal Medicine; Visit Provider Internal Medicine
DX: E78.00 Pure hypercholesterolemia, unspecified (principal); I10 Essential (primary) hypertension; R73.01 Impaired fasting glucose; R79.89 Other specified abnormal findings of blood chemistry; J30.9 Allergic rhinitis, unspecified; E55.9 Vitamin D deficiency, unspecified; G47.00 Insomnia, unspecified; F41.9 Anxiety disorder, unspecified; E66.3 Overweight
CPT/HCPCS: 99214

== ENCOUNTER 2023-04-17 08:06 | Outpatient (REF) | payer OTHER, SELFPAY ==
[2023-04-17 08:31] LABS: MANUAL DIFF FLAG NO
[2023-04-17 09:01] LABS: Basophils Percent Auto 0.6 % (0-2); Eosinophils Absolute Auto 0.2 X10*3/uL (0.0-0.4); Eosinophils Percent Auto 3.6 % (0-4); Hematocrit 42.1 % (37.0-47.0); Imm Gran Abs Auto 0.01 X10*3/uL (0.00-0.03); Imm Gran Pct Auto 0.2 % (0.0-0.4); Lymphocytes Absolute Auto 1.7 X10*3/uL (1.2-4.9); Lymphocytes Percent Auto 36.2 % (20-40); Mean Corpuscular HGB Conc 33.3 g/dl (31.0-35.0); Mean Corpuscular Hemoglobin 28.9 pg (27.0-33.0); Mean Corpuscular Volume 86.8 fL (80.0-98.0); Mean Platelet Volume 9.8 fL (9.4-12.3); Monocytes Absolute Auto 0.4 X10*3/uL (0.1-1.2); Monocytes Percent Auto 8.5 % (2-11); Neutrophils Absolute Auto 2.4 x10*3/uL (2.0-8.3); Neutrophils Percent Auto 50.9 % (45-73); Platelet Count 255 X10*3/uL (160-400); Red Blood Count 4.85 X10*6/uL (4.20-5.50); Red Cell Distribution Width 12.4 % (11.0-16.0); White Blood Count 4.7 X10*3/uL (4.8-10.8)
[2023-04-17 09:20] LABS: Estimated Average Glucose 123 mg/dL; Hemoglobin A1c % 5.9 % (<6.0)
[2023-04-17 09:48] LABS: Alanine Aminotransferase 78 U/L (0-31); Albumin Level 4.3 g/dL (3.5-5.0); Alkaline Phosphatase 62 U/L (39-117); Anion Gap 12 (12-20); Aspartate Amino Transferase 35 U/L (5-31); Bilirubin Total 0.7 mg/dL (0.0-1.0); Blood Urea Nitrogen 10 mg/dL (9-16); Calcium 9.3 mg/dL (8.4-10.2); Carbon Dioxide 27 mmol/L (22-29); Chloride 105 mmol/L (96-108); Cholesterol 170 mg/dL (<200); Estimated Glomerular Filt Rate > 60; Glucose Random 105 mg/dL (60-115); HDL Cholesterol 57 mg/dL (>40); LDL Cholesterol Calculated 73 mg/dL (<100); Potassium 3.5 mmol/L (3.3-5.1); Sodium 140 mmol/L (135-145); Total Protein 7.2 g/dL (6.5-8.0); Triglycerides 202 mg/dL (<150)
[2023-04-17 09:52] LABS: Free T4 (Free Thyroxine) 0.89 ng/dL (0.71-1.85); Thyroid Stimulating Hormone 0.91 uIU/mL (0.32-4.0)
[2023-04-17 10:12] LABS: Appearance Urine Clear; Color Urine Yellow; Glucose Urine UA Negative (Negative); Leukocyte Esterase Urine Negative (Negative); Nitrite Urine Negative (Negative); Urine Blood Negative (Negative); Urine Ketones Negative (Negative); Urine Protein Negative (Neg-Trace)
[2023-04-23 18:04] LABS: CK-BB None Detected (None Detected); CK-MB 0 % (<5); CK-MM 100 % (95-100); Creatine Kinase,Total,Serum 107 U/L (29-143)
== END 2023-04-17 08:07 | disposition home or self-care (01) ==
LOC: HO.LAB 08:06
PROVIDERS: PCP Internal Medicine; Visit Provider Internal Medicine
DX: E55.9 Vitamin D deficiency, unspecified (principal); R30.0 Dysuria; E78.00 Pure hypercholesterolemia, unspecified; R73.01 Impaired fasting glucose; I10 Essential (primary) hypertension
CPT/HCPCS: 36415; 80053; 80061; 81003; 82552; 83036; 84439; 84443; 85025

== ENCOUNTER 2023-04-20 09:48 | Outpatient (AMB) | payer OTHER, SELFPAY ==
[2023-04-20 09:51] VITALS: BP 126/84; PULSE 84; O2SAT 99; BMI 29.8
--- NOTE | 2023-04-20 09:51 | A.OFFPC_ITS ---
Vital Signs 04/20/23 09:51 Height 5 ft 3 in Weight 168 lb 2 oz BMI 29.8 BP 126/84 Blood Pressure Location Lt brachial Position Sitting Pulse 84 Pulse Source Pulse Oximeter Pulse Oximetry (%) 99 Oxygen Delivery Method Room Air Intake Visit Reasons: 4 month f/u Multimedia Authoring Specialist Required: No Accompanied by: Self / Same As Patient Allergies latex Allergy (Unknown, Verified 04/20/23 10:51) Unknown diphenhydramine [From BENADRYL] Adverse Reaction (Severe, Verified 04/20/23 10:51) TACHYCARDIA/PALPITATIONS Medication List - Last Reconciled 04/20/23 by Zachariah Hickman MD ascorbate calcium (vitamin C) 500 mg PO DAILY cholecalciferol (vitamin D3) (Vitamin D3) 25 mcg PO DAILY coenzyme Q10 (Ultra CoQ10) 75 mg PO DAILY garlic 1,000 mg PO DAILY glucosamine HCl 1,500 mg PO DAILY hydrochlorothiazide 25 mg PO DAILY 90 days L. acidophilus/Bifid. animalis 2.5 billion cell (Daily Probiotic) caps PO .QD loratadine 10 mg PO DAILY PRN losartan 50 mg PO DAILY 90 days magnesium oxide 400 mg PO DAILY rosuvastatin 5 mg PO DAILY 30 days vitamin B complex 1 tab PO DAILY Tobacco use date assessed: 04/20/23 Dental Screening Dental Screen Date: 04/20/23 Did you have a dental visit in the last 12 months?: Yes Did you have a dental problem in the last 6 months where you did not have access to dental care?: No Was dental information given to patient?: Patient has dentist HPI 4 month f/u HPI Details Patient comes in today for her follow up visit States that she feels okay She denies any headaches or dizziness Denies any chest pains, no SOB No nausea/vomiting, no abdominal pain No change in bowel habits noted Had her follow up labs done a few days ago - to discuss her results [facility] Medical History Overweight (BMI 25.0-29.9) Anxiety Insomnia Elevated LFTs Allergic rhinitis Vitamin D deficiency Pure hypercholesterolemia Impaired fasting glucose Benign essential hypertension Surgical History Status post right oophorectomy (~2006) Family History Father Colon cancer Hypertension Stroke Mother Hypertension Heart attack Stroke Diabetes mellitus Daughter In good health Son In good health Son In good health Son In good health Sister No problems noted. Brother No problems noted. 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 1. Little interest or pleasure in doing things: not at all 2. Feeling down, depressed, or hopeless: not at all 3. Trouble falling or staying asleep, or sleeping too much: not at all 4. Feeling tired or having little energy: not at all 5. Poor appetite or overeating: not at all 6. Feeling bad about yourself - or that you are a failure or have let yourself or your family down: not at all 7. Trouble concentrating on things, such as reading the newspaper or watching television: not at all 8. Moving or speaking so slowly that other people could have noticed. Or the opposite - being so fidgety or restless that you have been moving around a lot more than usual: not at all 9. Thoughts that you would be better off or of hurting yourself in some way: not at all Total score: 0 Depression Screening Interpretation: Negative Depression Screening Done: Yes 27426 - PHQ-9 Billing: Yes Source: Developed by Drs. Cam Vizcarra, Aileen Cardoza, Tim Lao and colleagues, with an educational quinn from [employer]. Thrive Questionnaire Date Thrive assessed: 04/20/23 I am a: Patient What is your living situation today?: I have a steady place to live Within the past 12 months, did the food you bought not last and you didn't have the money to get more?: Never true Within the past 12 months, did you worry whether your food would run out before you got money to buy more?: Never true Do you have trouble paying for medicines?: No Do you have trouble getting transportation to medical appointments?: No Do you have trouble paying your heating and electricity bill?: No Do you have trouble taking care of your child, family member or friend?: No Do you have trouble with day-to-day activities such as bathing, preparing meals, shopping, managing finances, etc.?: No Are you currently unemployed and looking for a job?: No Are you interested in more education?: No Please select the resources that you would like help with: None Currently or been in a relationship where the following occur: no concerns reported THRIVE Score: 0 AUDIT C Alcohol Use Questionnaire (AUDIT-C) 1. How often do you have a drink containing alcohol?: Never 3. How often do you have six or more drinks on one occasion?: Never Total Score: 0 Score Reviewed/Action Taken: Yes GENARO-7 AMB Questionnaire GENARO-7 Date GENARO - 7 assessed: 04/20/23 Feeling nervous, anxious, or on edge: 0 = Not at all Not being able to stop or control worryin = Not at all Worrying too much about different things: 0 = Not at all Trouble relaxin = Not at all Being so restless that it is hard to sit still: 0 = Not at all Becoming easily annoyed or irritable: 0 = Not at all Feeling afraid as if something awful might happen: 0 = Not at all Total GENARO-7 score (0-4 normal; 5-9 mild; 10-14 moderate; 15-21 severe): 0 Source: Developed by Drs. Cam Vizcarra, Aileen Cardoza, Tim Lao and colleagues, with an educational qiunn from [employer]. Review of Systems Const Denies chills, Denies fatigue, Denies fever(s) and Denies headache(s) ENT Denies dysphagia, Denies dizziness, Denies otalgia, Denies headache(s), Denies neck pain, Denies odynophagia and Denies sore throat Card Denies chest pain, Denies palpitations and Denies dyspnea Resp Denies chest congestion, Denies cough and Denies dyspnea GI Denies abdominal pain, Denies constipation, Denies dysphagia, Denies heartburn, Denies diarrhea, Denies nausea, Denies odynophagia and Denies vomiting Denies difficulty voiding, Denies nocturia and Denies dysuria Musc Denies back pain, Denies arthralgias and Denies neck pain Skin/Breast Denies rash Neuro Denies dizziness and Denies headache(s) Endo Denies fatigue and Denies palpitations Physical exam (Primary Care) Vital Signs: Last Vital Signs Pulse 84 04/20/23 09:51 BP 126/84 04/20/23 09:51 Pulse Ox 99 04/20/23 09:51 Oxygen Delivery Method Room Air 04/20/23 09:51 BMI result Body Mass Index 29.8 Tobacco/Smoking Status: Tobacco use Status Tobacco use date assessed 04/20/23 04/20/23 09:58 Patient Tobacco Use Status Never used Tobacco 04/20/23 09:58 e-Cigarette/Vaping Use Never Used 04/20/23 09:58 PHQ-9: PHQ-9 Score PHQ-9: Total score 0 04/20/23 09:58 Depression Screening Interpretation: Negative Thrive Assessment: Date of Thrive Assessment Date Thrive assessed 04/20/23 04/20/23 09:58 Currently or been in a relationship where the following occur: no concerns reported Const General: no acute distress and alert HENMT Ears: TM's normal bilaterally and EAC's normal Throat: Yes posterior oropharynx normal and Yes tonsils normal (no TP congestion noted) Neck Neck: Yes no lymphadenopathy and Yes supple Resp Auscultation: clear to auscultation bilaterally, no rales and no wheezes Cardio Rate: regular rate Rhythm: regular rhythm Heart sounds: no murmurs GI Palpation (GI): Soft to palpation and nontender Auscultation: normal bowel sounds General: Yes no CVA tenderness Back/Spine/Pelvis Back: no CVA tenderness Skin Rashes: no rashes Extrem General: Yes no clubbing, cyanosis or edema Results Reviewed Results Reviewed: Laboratory Tests 04/17/23 04/17/23 08:25 08:30 WBC 4.7 L Hgb 14.0 Hct 42.1 Plt Count 255 Sodium 140 Potassium 3.5 Creatinine 0.68 Estimated GFR > 60 Random Glucose 105 Hemoglobin A1c % 5.9 Calcium 9.3 AST 35 H ALT 78 H Triglycerides 202 H Cholesterol 170 LDL Cholesterol, Calc 73 HDL Cholesterol 57 TSH 0.91 Free T4 0.89 Ur Specific [place] 1.010 Urine Protein Negative Urine Glucose (UA) Negative Urine Blood Negative Urine Nitrite Negative Ur Leukocyte Esterase Negative Assessment and Plan Assessment & Plan (1) Pure hypercholesterolemia: Code(s): E78.00 - Pure hypercholesterolemia, unspecified Plan: Results of her labs done a few days ago reviewed and discussed with patient - advised that her cholesterol levels have improved significantly from previous Reinforced low cholesterol diet Continue Rosuvastatin 5 mg QD Will recheck her labs and fasting lipids in 4 months follow-up (2) Benign essential hypertension: Code(s): I10 - Essential (primary) hypertension Plan: Reinforced low sodium diet - goal is systolic BP of at least 120 to 130 mm or less Continue Losartan 50 mg QD and HCTZ 25 mg QD Patient is reminded to continue monitoring her blood pressure regularly (3) Impaired fasting glucose: Code(s): R73.01 - Impaired fasting glucose Plan: HgbA1c was at 5.9% on her labs done a few days ago; was at 6.0% a few months ago Reinforced low calorie diet /exercise as tolerated (4) Elevated LFTs: Code(s): R79.89 - Other specified abnormal findings of blood chemistry Plan: She is advised/cautioned that her LFTs are still slightly elevated on her recent labs Hepatitis profile done last year came back negative Abdominal US done at [facility] in April 2022 revealed (+) hepatosteatosis; US is otherwise normal Patient is encouraged to continue to try to lose weight and exercise regularly - reassured that her LFTs should return to normal with weight loss Will continue to monitor her LFTs regularly (5) Allergic rhinitis: Code(s): J30.9 - Allergic rhinitis, unspecified Qualifiers: Allergic rhinitis trigger: unspecified Allergic rhinitis seasonality: unspecified Qualified Code(s): J30.9 - Allergic rhinitis, unspecified Plan: Continue Loratadine 10 mg QD as needed and Fluticasone nasal spray 50 mcg 1 spray in each nostril daily as needed Patient has not needed to use her Albuterol inhaler over the past few months (6) Vitamin D deficiency: Code(s): E55.9 - Vitamin D deficiency, unspecified Plan: Continue Vitamin D3 1000 units QD (7) Insomnia: Code(s): G47.00 - Insomnia, unspecified Qualifiers: Insomnia type: unspecified Qualified Code(s): G47.00 - Insomnia, unspecified Plan: Sleep hygiene reinforced Used to take Trazodone 50 mg once a day at bedtime as needed but states that she has not needed to take this in a long time now (8) Anxiety: Code(s): F41.9 - Anxiety disorder, unspecified Plan: Used to take Lorazepam 0.5 mg 1 to 2 times a day as needed but also states that she has not needed to take Lorazepam in a while (9) Overweight (BMI 25.0-29.9): Code(s): E66.3 - Overweight Plan: Reinforced diet/exercise as tolerated/lose weight Plan Follow up in 4 months Orders: Orders Hemoglobin A1c 4 Months R73.01 - Impaired fasting glucose Complete Blood Count Auto Diff 4 Months D64.9 - Anemia, unspecified Vitamin D 25-OH Total 4 Months E55.9 - Vitamin D deficiency, unspecified Comprehensive [place]. Panel Fast 4 Months E78.00 - Pure hypercholesterolemia, unspecified Lipid Panel 4 Months E78.00 - Pure hypercholesterolemia, unspecified TSH reflex Free T4 4 Months E78.00 - Pure hypercholesterolemia, unspecified UA CC w/rflx Micro + Cult 4 Months R30.0 - Dysuria Vitamin B12 and Folate 4 Months E53.8 - Deficiency of other specified B group vitamins Microalbumin, Random (w Creat) 4 Months I10 - Essential (primary) hypertension, R73.01 - Impaired fasting glucose Coding Level of Care Code Est Pt Level 4 (36967) Diagnoses Pure hypercholesterolemia E78.00 Benign essential hypertension I10 Impaired fasting glucose R73.01 Elevated LFTs R79.89 Allergic rhinitis, unspecified seasonality, unspecified trigger J30.9 Allergic rhinitis trigger: unspecified Allergic rhinitis seasonality: unspecified Vitamin D deficiency E55.9 Insomnia, unspecified type G47.00 Insomnia type: unspecified Anxiety F41.9 Overweight (BMI 25.0-29.9) E66.3
== END 2023-04-20 10:51 | disposition home or self-care (01) ==
PROVIDERS: PCP Internal Medicine; Visit Provider Internal Medicine
DX: E78.00 Pure hypercholesterolemia, unspecified (principal); I10 Essential (primary) hypertension; R73.01 Impaired fasting glucose; R79.89 Other specified abnormal findings of blood chemistry; J30.9 Allergic rhinitis, unspecified; E55.9 Vitamin D deficiency, unspecified; G47.00 Insomnia, unspecified; F41.9 Anxiety disorder, unspecified; E66.3 Overweight
CPT/HCPCS: 99214

== ENCOUNTER 2023-07-31 08:38 | Outpatient (REF) | payer OTHER, SELFPAY ==
[2023-07-31 08:55] LABS: MANUAL DIFF FLAG NO
[2023-07-31 09:54] LABS: Basophils Absolute Auto 0.1 X10*3/uL (0.0-0.2); Basophils Percent Auto 1.2 % (0-2); Eosinophils Absolute Auto 0.2 X10*3/uL (0.0-0.4); Eosinophils Percent Auto 3.5 % (0-4); Hematocrit 40.3 % (37.0-47.0); Hemoglobin 13.8 g/dl (12.0-16.0); Imm Gran Abs Auto 0.01 X10*3/uL (0.00-0.03); Imm Gran Pct Auto 0.2 % (0.0-0.4); Lymphocytes Absolute Auto 1.8 X10*3/uL (1.2-4.9); Lymphocytes Percent Auto 40.7 % (20-40); Mean Corpuscular HGB Conc 34.2 g/dl (31.0-35.0); Mean Corpuscular Hemoglobin 29.4 pg (27.0-33.0); Mean Corpuscular Volume 85.9 fL (80.0-98.0); Mean Platelet Volume 9.6 fL (9.4-12.3); Monocytes Absolute Auto 0.4 X10*3/uL (0.1-1.2); Monocytes Percent Auto 9.5 % (2-11); Neutrophils Absolute Auto 1.9 x10*3/uL (2.0-8.3); Neutrophils Percent Auto 44.9 % (45-73); Platelet Count 250 X10*3/uL (160-400); Red Blood Count 4.69 X10*6/uL (4.20-5.50); Red Cell Distribution Width 12.1 % (11.0-16.0); White Blood Count 4.3 X10*3/uL (4.8-10.8)
[2023-07-31 10:00] LABS: Estimated Average Glucose 128 mg/dL; Hemoglobin A1c % 6.1 % (<6.0)
[2023-07-31 10:31] LABS: Alanine Aminotransferase 35 U/L (0-31); Albumin Level 4.3 g/dL (3.5-5.0); Alkaline Phosphatase 51 U/L (39-117); Anion Gap 12 (12-20); Aspartate Amino Transferase 22 U/L (5-31); Bilirubin Total 0.7 mg/dL (0.0-1.0); Blood Urea Nitrogen 10 mg/dL (9-16); Calcium 9.6 mg/dL (8.4-10.2); Carbon Dioxide 27 mmol/L (22-29); Chloride 106 mmol/L (96-108); Cholesterol 185 mg/dL (<200); Estimated Glomerular Filt Rate > 60; Glucose Fasting 107 mg/dL (60-99); HDL Cholesterol 53 mg/dL (>40); LDL Cholesterol Calculated 80 mg/dL (<100); Potassium 3.2 mmol/L (3.3-5.1); Sodium 142 mmol/L (135-145); Triglycerides 260 mg/dL (<150)
[2023-07-31 10:52] LABS: TSH reflex Free T4 0.61 uIU/mL (0.32-4.0)
[2023-07-31 10:59] LABS: Appearance Urine Clear; Color Urine Dark Yellow; Glucose Urine UA Negative (Negative); Leukocyte Esterase Urine Small (1+) (Negative); Nitrite Urine Negative (Negative); PH 6.5 (5.0-9.0); UMIC TRIGGER UACC YES; Urine Blood Negative (Negative); Urine Ketones Negative (Negative); Urine Protein Negative (Neg-Trace)
[2023-07-31 11:01] LABS: Folate 15.4 ng/mL (> or = 4.0); Vitamin B12 555 pg/mL (200-900)
[2023-07-31 11:16] LABS: Bacteria Urine None Seen (None Seen); Hyaline Casts Urine 0-2 /LPF (0-2); RBC Urine 0-2 /HPF (0-2); UACC Culture Trigger YES; WBC Urine 0-5 /HPF (0-5)
[2023-07-31 11:39] LABS: Creatinine Urine 143.84 mg/dL; Microalbum/Creatinine Ratio Ur 6.9 ug/mg cr (<30)
== END 2023-07-31 08:39 | disposition home or self-care (01) ==
LOC: HO.LAB 08:38
PROVIDERS: PCP Internal Medicine; Visit Provider Internal Medicine
DX: E55.9 Vitamin D deficiency, unspecified (principal); R73.01 Impaired fasting glucose; D64.9 Anemia, unspecified; E78.00 Pure hypercholesterolemia, unspecified; E53.8 Deficiency of other specified B group vitamins; I10 Essential (primary) hypertension
CPT/HCPCS: 36415; 80053; 80061; 81001; 82043; 82306; 82570; 82607; 82746; 83036; 84443; 85025; 87086

== ENCOUNTER 2023-08-20 11:01 | Outpatient (AMB) | payer OTHER, SELFPAY ==
[2023-08-20 11:02] VITALS: BP 130/68; PULSE 86; O2SAT 98; BMI 28.9
--- NOTE | 2023-08-20 11:02 | A.OFFPC_ITS ---
Vital Signs 08/20/23 11:02 Height 5 ft 3 in Weight 163 lb BMI 28.9 BP 130/68 Blood Pressure Location Lt brachial Position Sitting Pulse 86 Pulse Source Pulse Oximeter Pulse Oximetry (%) 98 Oxygen Delivery Method Room Air Intake Visit Reasons: hyperlipidemia, HTN, elevated LFTs Allergies latex Allergy (Unknown, Verified 08/20/23 11:21) Unknown diphenhydramine [From BENADRYL] Adverse Reaction (Severe, Verified 08/20/23 11:21) TACHYCARDIA/PALPITATIONS Medication List - Last Reconciled 08/20/23 by Zachariah Hickman MD ascorbate calcium (vitamin C) 500 mg PO DAILY cholecalciferol (vitamin D3) (Vitamin D3) 25 mcg PO DAILY coenzyme Q10 (Ultra CoQ10) 75 mg PO DAILY garlic 1,000 mg PO DAILY glucosamine HCl 1,500 mg PO DAILY hydrochlorothiazide 25 mg PO DAILY 90 days L. acidophilus/Bifid. animalis 2.5 billion cell (Daily Probiotic) caps PO .QD loratadine 10 mg PO DAILY PRN losartan 50 mg PO DAILY 90 days magnesium oxide 400 mg PO DAILY rosuvastatin 5 mg PO DAILY vitamin B complex 1 tab PO DAILY Tobacco use date assessed: 04/20/23 Dental Screening Dental Screen Date: 08/20/23 Did you have a dental visit in the last 12 months?: No Did you have a dental problem in the last 6 months where you did not have access to dental care?: No Was dental information given to patient?: Patient has dentist HPI hyperlipidemia, HTN, elevated LFTs HPI Details Patient comes in today for her follow up visit States that she feels okay She denies any headaches or dizziness Denies any chest pain, no SOB No nausea/vomiting, no abdominal pain No change in bowel habits noted She had her follow up labs done a few weeks ago - to discuss her results [facility] Medical History Overweight (BMI 25.0-29.9) Anxiety Insomnia Elevated LFTs Allergic rhinitis Vitamin D deficiency Pure hypercholesterolemia Impaired fasting glucose Benign essential hypertension Surgical History Status post right oophorectomy (~2006) Family History Father Colon cancer Hypertension Stroke Mother Hypertension Heart attack Stroke Diabetes mellitus Daughter In good health Son In good health Son In good health Son In good health Sister No problems noted. Brother No problems noted. 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 1. Little interest or pleasure in doing things: not at all 2. Feeling down, depressed, or hopeless: not at all 3. Trouble falling or staying asleep, or sleeping too much: not at all 4. Feeling tired or having little energy: not at all 5. Poor appetite or overeating: not at all 6. Feeling bad about yourself - or that you are a failure or have let yourself or your family down: not at all 7. Trouble concentrating on things, such as reading the newspaper or watching television: not at all 8. Moving or speaking so slowly that other people could have noticed. Or the opposite - being so fidgety or restless that you have been moving around a lot more than usual: not at all 9. Thoughts that you would be better off or of hurting yourself in some way: not at all Total score: 0 Depression Screening Interpretation: Negative Depression Screening Done: Yes 83128 - PHQ-9 Billing: Yes Source: Developed by Drs. Cam Vizcarra, Aileen Cardoza, Tim Lao and colleagues, with an educational quinn from [employer]. Thrive Questionnaire Date Thrive assessed: 04/20/23 AUDIT C Alcohol Use Questionnaire (AUDIT-C) 1. How often do you have a drink containing alcohol?: Never 3. How often do you have six or more drinks on one occasion?: Never Total Score: 0 Score Reviewed/Action Taken: Yes GENARO-7 AMB Questionnaire GENARO-7 Date GENARO - 7 assessed: 04/20/23 Source: Developed by Drs. Cam Vizcarra, Aileen Cardoza, Tim Lao and colleagues, with an educational quinn from [employer]. Review of Systems Const Denies chills, Denies fatigue, Denies fever(s) and Denies headache(s) ENT Denies dysphagia, Denies dizziness, Denies otalgia, Denies headache(s), Denies neck pain, Denies odynophagia and Denies sore throat Card Denies chest pain, Denies palpitations and Denies dyspnea Resp Denies chest congestion, Denies cough and Denies dyspnea GI Denies abdominal pain, Denies constipation, Denies dysphagia, Denies heartburn, Denies diarrhea, Denies nausea, Denies odynophagia and Denies vomiting Denies difficulty voiding, Denies nocturia, Denies dysuria and Denies urinary urgency Musc Denies back pain, Denies arthralgias and Denies neck pain Skin/Breast Denies rash Neuro Denies dizziness and Denies headache(s) Endo Denies fatigue and Denies palpitations Physical exam (Primary Care) Vital Signs: Last Vital Signs Pulse 86 08/20/23 11:02 BP 130/68 08/20/23 11:02 Pulse Ox 98 08/20/23 11:02 Oxygen Delivery Method Room Air 08/20/23 11:02 BMI result Body Mass Index 28.9 Tobacco/Smoking Status: Tobacco use Status Tobacco use date assessed 04/20/23 08/20/23 11:04 Patient Tobacco Use Status Never used Tobacco 08/20/23 11:04 e-Cigarette/Vaping Use Never Used 08/20/23 11:04 PHQ-9: PHQ-9 Score PHQ-9: Total score 0 08/20/23 11:04 Depression Screening Interpretation: Negative Thrive Assessment: Date of Thrive Assessment Date Thrive assessed 04/20/23 08/20/23 11:04 Const General: no acute distress and alert HENMT Ears: TM's normal bilaterally and EAC's normal Throat: Yes posterior oropharynx normal and Yes tonsils normal (no TP congestion noted) Neck Neck: Yes no lymphadenopathy and Yes supple Thyroid: Thyroid normal Resp Auscultation: clear to auscultation bilaterally, no rales and no wheezes Cardio Rate: regular rate Rhythm: regular rhythm Heart sounds: no murmurs GI Palpation (GI): Soft to palpation and nontender Auscultation: normal bowel sounds General: Yes no CVA tenderness Back/Spine/Pelvis Back: no CVA tenderness Thoracic/Lumbar Spine: No lumbar spinal tenderness Skin Rashes: no rashes Extrem General: Yes no clubbing, cyanosis or edema Results Reviewed Results Reviewed: Laboratory Tests 04/17/23 07/31/23 07/31/23 08:30 08:51 08:55 WBC 4.3 L Hgb 13.8 Hct 40.3 Plt Count 250 Sodium 142 Potassium 3.2 L Creatinine 0.66 Estimated GFR > 60 Fasting Glucose 107 H Hemoglobin A1c % 6.1 H Calcium 9.6 AST 22 ALT 35 H Triglycerides 260 H Cholesterol 185 LDL Cholesterol, Calc 80 HDL Cholesterol 53 Vitamin B12 555 25-OH Vitamin D Total 49.0 TSH 0.61 Free T4 0.89 Ur Specific [place] 1.020 Urine Protein Negative Urine Glucose (UA) Negative Urine Blood Negative Urine Nitrite Negative Ur Leukocyte Esterase Small (1+) H Microalb/Creat Ratio 6.9 Assessment and Plan Assessment & Plan (1) Pure hypercholesterolemia: Code(s): E78.00 - Pure hypercholesterolemia, unspecified Plan: Results of her labs done a few weeks ago reviewed and discussed with patient - she is advised that her triglyceride level has increased again from previous Reinforced low cholesterol diet Continue Rosuvastatin 5 mg QD for now Will recheck her labs and fasting lipids in 4 months follow-up (2) Benign essential hypertension: Code(s): I10 - Essential (primary) hypertension Plan: Reinforced low sodium diet - goal is systolic BP of at least 120 to 130 mm or less Continue Losartan 50 mg QD and HCTZ 25 mg QD Patient is reminded to continue monitoring her blood pressure regularly (3) Impaired fasting glucose: Code(s): R73.01 - Impaired fasting glucose Plan: HgbA1c was at 6.1% on her labs done a few weeks ago; was at 5.9% a few months ago Reinforced low calorie diet /exercise as tolerated (4) Elevated LFTs: Code(s): R79.89 - Other specified abnormal findings of blood chemistry Plan: She is advised that her LFTs have improved significantly from previous (with her recent weight loss) but her ALT is still slightly elevated Hepatitis profile done last year came back negative; abdominal US done at [facility] in April 2022 revealed (+) hepatosteatosis, US is otherwise normal Patient is encouraged to continue to try to lose weight and exercise regularly - reassured that her LFTs should completely return to normal with sustained weight loss Will continue to monitor her LFTs regularly (5) Allergic rhinitis: Code(s): J30.9 - Allergic rhinitis, unspecified Qualifiers: Allergic rhinitis trigger: unspecified Allergic rhinitis seasonality: unspecified Qualified Code(s): J30.9 - Allergic rhinitis, unspecified Plan: Continue Loratadine 10 mg QD as needed and Fluticasone nasal spray 50 mcg 1 spray in each nostril daily as needed Patient has not needed to use her Albuterol inhaler in a while now (6) Vitamin D deficiency: Code(s): E55.9 - Vitamin D deficiency, unspecified Plan: Continue Vitamin D3 1000 units QD (7) Insomnia: Code(s): G47.00 - Insomnia, unspecified Qualifiers: Insomnia type: unspecified Qualified Code(s): G47.00 - Insomnia, unspecified Plan: Sleep hygiene reinforced She used to take Trazodone 50 mg once a day at bedtime as needed but states that she has not needed to take this in a long time (8) Anxiety: Code(s): F41.9 - Anxiety disorder, unspecified Plan: She used to take Lorazepam 0.5 mg 1 to 2 times a day as needed but also states that she has not needed to take Lorazepam in a while (9) Overweight (BMI 25.0-29.9): Code(s): E66.3 - Overweight Plan: Reinforced diet/exercise as tolerated/lose weight - she has been able to lose some weight since her last visit Plan Follow up in 4 months Orders: Orders Complete Blood Count Auto Diff 4 Months D64.9 - Anemia, unspecified Lipid Panel 4 Months E78.00 - Pure hypercholesterolemia, unspecified Comprehensive [place]. Panel Fast 4 Months E78.00 - Pure hypercholesterolemia, unspecified Hemoglobin A1c 4 Months R73.01 - Impaired fasting glucose UA CC w/rflx Micro + Cult 4 Months R30.0 - Dysuria Coding Level of Care Code Est Pt Level 4 (02661) Complex EM visit Add On G2211 Diagnoses Pure hypercholesterolemia E78.00 Benign essential hypertension I10 Impaired fasting glucose R73.01 Elevated LFTs R79.89 Allergic rhinitis, unspecified seasonality, unspecified trigger J30.9 Allergic rhinitis trigger: unspecified Allergic rhinitis seasonality: unspecified Vitamin D deficiency E55.9 Insomnia, unspecified type G47.00 Insomnia type: unspecified Anxiety F41.9 Overweight (BMI 25.0-29.9) E66.3
== END 2023-08-20 11:42 | disposition home or self-care (01) ==
PROVIDERS: PCP Internal Medicine; Visit Provider Internal Medicine
DX: E78.00 Pure hypercholesterolemia, unspecified (principal); I10 Essential (primary) hypertension; R73.01 Impaired fasting glucose; R79.89 Other specified abnormal findings of blood chemistry; J30.9 Allergic rhinitis, unspecified; E55.9 Vitamin D deficiency, unspecified; G47.00 Insomnia, unspecified; F41.9 Anxiety disorder, unspecified; E66.3 Overweight
CPT/HCPCS: 99214; G2211

== ENCOUNTER 2023-12-25 09:07 | Outpatient (REF) | payer OTHER, SELFPAY ==
[2023-12-25 09:26] LABS: MANUAL DIFF FLAG NO
[2023-12-25 09:56] LABS: Appearance Urine Clear; Color Urine Yellow; Glucose Urine UA Negative (Negative); Leukocyte Esterase Urine Negative (Negative); Nitrite Urine Negative (Negative); Urine Blood Negative (Negative); Urine Ketones Negative (Negative); Urine Protein Negative (Neg-Trace)
[2023-12-25 09:58] LABS: Basophils Percent Auto 0.9 % (0-2); Eosinophils Absolute Auto 0.1 X10*3/uL (0.0-0.4); Eosinophils Percent Auto 3.2 % (0-4); Hematocrit 41.8 % (37.0-47.0); Hemoglobin 14.2 g/dl (12.0-16.0); Imm Gran Abs Auto 0.01 X10*3/uL (0.00-0.03); Imm Gran Pct Auto 0.2 % (0.0-0.4); Lymphocytes Absolute Auto 1.6 X10*3/uL (1.2-4.9); Lymphocytes Percent Auto 35.6 % (20-40); Mean Corpuscular Hemoglobin 29.2 pg (27.0-33.0); Mean Platelet Volume 9.3 fL (9.4-12.3); Monocytes Absolute Auto 0.4 X10*3/uL (0.1-1.2); Monocytes Percent Auto 9.2 % (2-11); Neutrophils Absolute Auto 2.3 x10*3/uL (2.0-8.3); Neutrophils Percent Auto 50.9 % (45-73); Platelet Count 248 X10*3/uL (160-400); Red Blood Count 4.86 X10*6/uL (4.20-5.50); White Blood Count 4.4 X10*3/uL (4.8-10.8)
[2023-12-25 10:23] LABS: Estimated Average Glucose 126 mg/dL; Hemoglobin A1C 143.1618 umol/L; Total Hemoglobin (HGBA1C) 3406.2862 umol/L
[2023-12-25 10:31] LABS: Alanine Aminotransferase 34 U/L (0-31); Albumin Level 4.3 g/dL (3.5-5.0); Alkaline Phosphatase 57 U/L (39-117); Anion Gap 11 (12-20); Aspartate Amino Transferase 21 U/L (5-31); Bilirubin Total 0.7 mg/dL (0.0-1.0); Blood Urea Nitrogen 10 mg/dL (9-16); Calcium 9.7 mg/dL (8.4-10.2); Carbon Dioxide 30 mmol/L (22-29); Chloride 104 mmol/L (96-108); Cholesterol 198 mg/dL (<200); Estimated Glomerular Filt Rate > 60; Glucose Fasting 103 mg/dL (60-99); HDL Cholesterol 56 mg/dL (>40); LDL Cholesterol Calculated 83 mg/dL (<100); Potassium 3.5 mmol/L (3.3-5.1); Sodium 141 mmol/L (135-145); Total Protein 7.2 g/dL (6.5-8.0); Triglycerides 298 mg/dL (<150)
== END 2023-12-25 09:08 | disposition home or self-care (01) ==
LOC: HO.LAB 09:07
PROVIDERS: PCP Internal Medicine; Visit Provider Internal Medicine
DX: D64.9 Anemia, unspecified (principal); E78.00 Pure hypercholesterolemia, unspecified; R73.01 Impaired fasting glucose; R30.0 Dysuria
CPT/HCPCS: 36415; 80053; 80061; 81003; 83036; 85025

== ENCOUNTER 2023-12-28 10:42 | Outpatient (AMB) | payer OTHER, SELFPAY ==
--- NOTE | 2023-12-28 10:53 | MHC.PC.OV ---
Vital Signs 12/28/23 10:55 Height 5 ft 3 in Weight 163 lb BMI 28.9 BP 130/74 Blood Pressure Location Lt brachial Position Sitting Pulse 81 Pulse Source Pulse Oximeter Pulse Oximetry (%) 97 Oxygen Delivery Method Room Air Intake Visit Reasons: hyperlipidemia, elevated LFTs, IFG Intake Note: Patient is here to follow up on HLD, Elevated LFTs, IFG. Center Aisle Cashier Required: No Polisher Sand: Not Required per policy Accompanied by: Self / Same As Patient Allergies latex Allergy (Unknown, Verified 12/28/23 11:13) Unknown diphenhydramine [From BENADRYL] Adverse Reaction (Severe, Verified 12/28/23 11:13) TACHYCARDIA/PALPITATIONS Medication List - Last Reconciled 12/28/23 by Zachariah Hickman MD ascorbate calcium (vitamin C) 500 mg PO DAILY cholecalciferol (vitamin D3) (Vitamin D3) 25 mcg PO DAILY coenzyme Q10 (Ultra CoQ10) 75 mg PO DAILY garlic 1,000 mg PO DAILY glucosamine HCl 1,500 mg PO DAILY hydrochlorothiazide 25 mg PO DAILY 90 days L. acidophilus/Bifid. animalis 2.5 billion cell (Daily Probiotic) caps PO .QD loratadine 10 mg PO DAILY PRN losartan 50 mg PO DAILY 90 days magnesium oxide 400 mg PO DAILY rosuvastatin 5 mg PO DAILY vitamin B complex 1 tab PO DAILY Tobacco use date assessed: 12/28/23 Dental Screening Dental Screen Date: 08/20/23 HPI hyperlipidemia, elevated LFTs, IFG HPI Details Patient comes in today for her follow up visit States that she feels okay She denies any headaches or dizziness Denies any chest pain, no SOB No nausea/vomiting, no abdominal pain No change in bowel habits noted She had her follow up labs done a few days ago - to discuss her results [facility] Medical History Overweight (BMI 25.0-29.9) Anxiety Insomnia Elevated LFTs Allergic rhinitis Vitamin D deficiency Pure hypercholesterolemia Impaired fasting glucose Benign essential hypertension Surgical History Status post right oophorectomy (~2006) Family History Father Colon cancer Hypertension Stroke Mother Hypertension Heart attack Stroke Diabetes mellitus Daughter In good health Son In good health Son In good health Son In good health Sister No problems noted. Brother No problems noted. 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 Cam Vizcarra, Aileen Cardoza, Tim Lao and colleagues, with an educational quinn from [employer]. Review of Systems Const Denies chills, Denies fatigue, Denies fever(s) and Denies headache(s) ENT Denies dysphagia, Denies dizziness, Denies otalgia, Denies headache(s), Denies neck pain, Denies odynophagia and Denies sore throat Card Denies chest pain, Denies palpitations and Denies dyspnea Resp Denies chest congestion, Denies cough and Denies dyspnea GI Denies abdominal pain, Denies constipation, Denies dysphagia, Denies heartburn, Denies diarrhea, Denies nausea, Denies odynophagia and Denies vomiting Denies difficulty voiding, Denies nocturia, Denies dysuria and Denies urinary urgency Musc Denies back pain, Denies arthralgias and Denies neck pain Skin/Breast Denies rash Neuro Denies dizziness and Denies headache(s) Endo Denies fatigue and Denies palpitations Physical exam (Primary Care) Vital Signs: Last Vital Signs Pulse 81 12/28/23 10:55 BP 130/74 12/28/23 10:55 Pulse Ox 97 12/28/23 10:55 Oxygen Delivery Method Room Air 12/28/23 10:55 BMI result Body Mass Index 28.9 Tobacco/Smoking Status: Tobacco use Status Tobacco use date assessed 12/28/23 12/28/23 10:59 Patient Tobacco Use Status Never used Tobacco 12/28/23 10:59 e-Cigarette/Vaping Use Never Used 12/28/23 10:59 Thrive Assessment: Date of Thrive Assessment Date Thrive assessed 04/20/23 12/28/23 10:59 Const General: no acute distress and alert HENMT Ears: TM's normal bilaterally and EAC's normal Throat: Yes posterior oropharynx normal and Yes tonsils normal (no TP congestion noted) Neck Neck: Yes no lymphadenopathy and Yes supple Thyroid: Thyroid normal Resp Auscultation: clear to auscultation bilaterally, no rales and no wheezes Cardio Rate: regular rate Rhythm: regular rhythm Heart sounds: no murmurs GI Palpation (GI): Soft to palpation and nontender Auscultation: normal bowel sounds General: Yes no CVA tenderness Back/Spine/Pelvis Back: no CVA tenderness Thoracic/Lumbar Spine: No lumbar spinal tenderness Skin Rashes: no rashes Extrem General: Yes no clubbing, cyanosis or edema Results Reviewed Results Reviewed: Laboratory Tests 12/25/23 12/25/23 09:24 09:25 WBC 4.4 L Hgb 14.2 Hct 41.8 Plt Count 248 Sodium 141 Potassium 3.5 Creatinine 0.74 Estimated GFR > 60 Fasting Glucose 103 H Hemoglobin A1c % 6.0 Calcium 9.7 AST 21 ALT 34 H Triglycerides 298 H Cholesterol 198 LDL Cholesterol, Calc 83 HDL Cholesterol 56 Ur Specific [place] 1.010 Urine Protein Negative Urine Glucose (UA) Negative Urine Blood Negative Urine Nitrite Negative Ur Leukocyte Esterase Negative Coding Level of Care Code Est Pt Level 4 (72218) Diagnoses Pure hypercholesterolemia E78.00 Benign essential hypertension I10 Impaired fasting glucose R73.01 Elevated LFTs R79.89 Allergic rhinitis, unspecified seasonality, unspecified trigger J30.9 Allergic rhinitis trigger: unspecified Allergic rhinitis seasonality: unspecified Vitamin D deficiency E55.9 Insomnia, unspecified type G47.00 Insomnia type: unspecified Anxiety F41.9 Overweight (BMI 25.0-29.9) E66.3 Assessment & Plan Assessment & Plan (1) Pure hypercholesterolemia: Code(s): E78.00 - Pure hypercholesterolemia, unspecified Category: Medical Plan: Results of her labs done a few days ago reviewed and discussed with patient - her triglyceride level has increased again from previous Reinforced low cholesterol diet She plans to go back home to the [facility] for about a month in January 2024 and she is reminded to be careful with her diet while on vacation Continue Rosuvastatin 5 mg QD for now Will recheck her labs and fasting lipids in 4 months follow-up (2) Benign essential hypertension: Code(s): I10 - Essential (primary) hypertension Category: Medical Plan: Reinforced low sodium diet - goal is systolic BP of at least 120 to 130 mm or less Continue Losartan 50 mg QD and HCTZ 25 mg QD Patient is reminded to continue monitoring her blood pressure regularly (3) Impaired fasting glucose: Code(s): R73.01 - Impaired fasting glucose Category: Medical Plan: Her HgbA1c was at 6.0% on her labs done a few days ago; was previously at 6.1% a few months ago Reinforced low calorie diet /exercise as tolerated (4) Elevated LFTs: Code(s): R79.89 - Other specified abnormal findings of blood chemistry Category: Medical Plan: Her LFTs are mostly unchanged from previous - AST remains normal but her ALT is still slightly elevated but by just a few points Hepatitis profile done last year came back negative; abdominal US done at [facility] in April 2022 revealed (+) hepatosteatosis, US is otherwise normal Patient is encouraged to continue to try to lose weight and exercise regularly - reassured that her LFTs should completely return to normal with sustained weight loss Will continue to monitor her LFTs regularly (5) Allergic rhinitis: Code(s): J30.9 - Allergic rhinitis, unspecified Category: Medical Qualifiers: Allergic rhinitis trigger: unspecified Allergic rhinitis seasonality: unspecified Qualified Code(s): J30.9 - Allergic rhinitis, unspecified Plan: Continue Loratadine 10 mg QD as needed and Fluticasone nasal spray 50 mcg 1 spray in each nostril daily as needed Patient has not needed to use her Albuterol inhaler in a while now (6) Vitamin D deficiency: Code(s): E55.9 - Vitamin D deficiency, unspecified Category: Medical Plan: Continue Vitamin D3 1000 units QD (7) Insomnia: Code(s): G47.00 - Insomnia, unspecified Category: Medical Qualifiers: Insomnia type: unspecified Qualified Code(s): G47.00 - Insomnia, unspecified Plan: Sleep hygiene reinforced She used to take Trazodone 50 mg once a day at bedtime as needed but states that she no longer needs to take any Rx (8) Anxiety: Code(s): F41.9 - Anxiety disorder, unspecified Category: Medical Plan: She used to take Lorazepam 0.5 mg 1 to 2 times a day as needed but also states that she has not needed to take Lorazepam in a long time now (9) Overweight (BMI 25.0-29.9): Code(s): E66.3 - Overweight Category: Medical Plan: Reinforced diet/exercise as tolerated/lose weight Plan Follow up in 4 months Orders: Orders Complete Blood Count Auto Diff 4 Months D64.9 - Anemia, unspecified Comprehensive [place]. Panel Fast 4 Months E78.00 - Pure hypercholesterolemia, unspecified Lipid Panel 4 Months E78.00 - Pure hypercholesterolemia, unspecified TSH reflex Free T4 4 Months E78.00 - Pure hypercholesterolemia, unspecified UA CC w/rflx Micro + Cult 4 Months R30.0 - Dysuria Hemoglobin A1c 4 Months E11.9 - Type 2 diabetes mellitus without complications Microalbumin, Random (w Creat) 4 Months E11.9 - Type 2 diabetes mellitus without complications Vitamin D 25-OH Total 4 Months E55.9 - Vitamin D deficiency, unspecified
[2023-12-28 10:55] VITALS: BP 130/74; PULSE 81; O2SAT 97; BMI 28.9
== END 2023-12-28 11:36 | disposition home or self-care (01) ==
LOC: HO.HMCH 10:43
PROVIDERS: PCP Internal Medicine; Visit Provider Internal Medicine
DX: E78.00 Pure hypercholesterolemia, unspecified (principal); I10 Essential (primary) hypertension; R73.01 Impaired fasting glucose; R79.89 Other specified abnormal findings of blood chemistry; J30.9 Allergic rhinitis, unspecified; E55.9 Vitamin D deficiency, unspecified; G47.00 Insomnia, unspecified; F41.9 Anxiety disorder, unspecified; E66.3 Overweight

== ENCOUNTER → 2023-12-28 10:42 | Outpatient (BNVA) | payer OTHER, SELFPAY | PROVIDERS: PCP Internal Medicine; Visit Provider Internal Medicine ==

== ENCOUNTER 2024-04-29 07:39 | Outpatient (REF) | payer OTHER, SELFPAY ==
--- OUTSIDE RECORDS SUMMARY | 2024-04-29 07:42 | XMS_ITS ---
Author Organization [facility] Address [address] [place] [address] Care Team Providers Care Ancillary Services Manager Therapy Name Role Phone LASHAE ANDERSON Primary Care Provider Ladan Smith Unavailable [phone] Allergies Allergen (clinical drug ingredient) Drug/Non Drug Allergy documented on EMR Reaction Allergy Type Onset Date Status BENADRYL Unknown Drug Allergy Active Results Component Value Reference Range Notes Urinalysis Reviewed date:01/07/2023 10:27:20 AM Interpretation: Performing Lab: Notes/Report: PH 6.0 PROTEIN trace GLUCOSE NEG BLOOD Neg REASON FOR VISIT 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, 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 60-85+ Medications Medication SIG (Take, Route, Frequency, Duration) Notes Start Date End Date Status Vitamin B Complex Orally Ac tive Glucosamine 500 MG 1 capsule with a meal Orally Once a day Active Probiotic - Orally Active CoQ-10 30 MG 1 capsule with a meal Orally Once a day Active hydroCHLOROthiazide 25 MG 1 Orally DAILY 3 Active Vitamin C 1000 MG 1 tablet Orally Once a day for 30 day(s) Active Zinc 25 MG 1 tablet Orally Once a day for 30 day(s) Active Garlic 100 MG as directed Orally unknown dose Active Apple Cider Vinegar 500 MG as directed Orally Active Rosuvastatin Calcium 5 MG Oral for 90 Active Losartan Potassium 50 MG 1 tablet Orally Once a day Active Cinnamon 500 MG as directed Orally Active Magnesium 300 MG 1 capsule with a meal Orally Once a day Active Vitamin D 1000 UNIT 1 tablet Orally Once a day Active Social History Tobacco Use: Social History Observation Description Date Details (start date - stop date) Never Smoker NA - NA Tobacco Use/Smoking Question Answer Notes Are you a nonsmoker Alcohol Screen (Audit-C) Question Answer Notes Did you have a drink contain ing alcohol in the past year? Yes How often did you have a dri nk containing alcohol in the past year? 2 to 4 times a month (2 points) How many drinks did you have on a typical day when you were drinking in the past year? 1 or 2 drinks (0 point) Points 2 Interpretation Negative Sexual History Question Answer Notes Had sex in the past 12 months (vaginal, oral, or anal)? Yes with Men only Prevention strategies discussed: Other Problems Problem Type SNOMED Code ICD Code Onset Dates Problem Status W/U Status Risk Notes Problem Gynecological examination normal ([id number]) Encounter for gynecological examination (general) (routine) without abnormal findings (Z01.419) Active confirmed Vital Signs Temperature 96.9 degrees Fahrenheit 01/08/20 23 Blood pressure systolic 140 mm Hg 01/08/20 23 Blood pressure diastolic 82 mm Hg 023 Height 63 in 01/07/2023 Weight 167 lbs 01/07/2023 BMI 29.58 kg/m2 01/07/2023 Encounters Encounter Location Date Provider Diagnosis [address] [place] [address] 01/07/2023 Ladan Barry Encounter for gynecological examination (general) (routine) without abnormal findings Z01.419 ; Encounter for screening mammogram for malignant neoplasm of breast Z12.31 ; Encounter for screening for osteoporosis Z13.820 ; Inconclusive mammogram R92.2 and Personal history of other diseases of the female genital tract Z87.42 Assessments Encounter Date Diagnosis (ICD Code) Assessment Notes Treatment Notes Treatment Clinical Notes Section Notes 01/07/2023 Encounter for gynecological examination (general) (routine) without abnormal findings (ICD-10 - Z01.419) NO PAP TEST, DUE IN 2024. 01/07/2023 Encounter for screening mammogram for malignant neoplasm of breast (ICD-10 - Z12.31) REGULAR MAMMOGRAMS AND SBE'S WERE RECOMMENDED. 01/07/2023 Encounter for screening for osteoporosis (ICD-10 - Z13.820) BONE DENSITY WAS ORDERED. 01/07/2023 Inconclusive mammogram (ICD-10 - R92.2) DISCUSSED DENSE BREASTS ON MAMMOGRAM AND ITS IMPLICATIONS. 3D MAMMOGRAMS WERE RECOMMENDED. 01/07/2023 Personal history of other diseases of the female genital tract (ICD-10 - Z87.42) DISCUSSED PREVIOUS HX OF ABNORMAL PAP TEST AND RIGHT BENIGN OVARIAN CYST. Plan Of Treatment Treatment Notes Assessment Notes Encounter for gynecological examination (general) (routine) without abnormal findings NO PAP TEST, DUE IN 2024. Encounter for screening mamm ogram for malignant neoplasm of breast REGULAR MAMMOGRAMS AND SBE'S WERE RECOMMENDED. Encounter for screening for osteoporosis BONE DENSITY WAS ORDERED. Inconclusive mammogram DISCUSSED DENSE BREASTS ON MAMMOGRAM AND ITS IMPLICATIONS. 3D MAMMOGRAMS WERE RECOMMENDED. Personal history of other di seases of the female genital tract DISCUSSED PREVIOUS HX OF ABNORMAL PAP TEST AND RIGHT BENIGN OVARIAN CYST. Pending Test Test Name Order Date MAMMOGRAM, SCREENING 01/07/2023 BONE DENSITY 01/07/2023 MM Digital Mammo Screening 01/07/2023 Next Appt Details Follow Up: 1 Year, Reason: Provider Name:Ladan chowdhury, 01/19/2025 10:40:00 AM, [address] [place] [address], [address], [place], [address], Progress Notes * PHIL CHACKODOB:1960 ( 62 yo F)Acc No.[id number]:01/07/2023 PROGRESS NOTES Patient:?PHIL CHACKO Appointment Provider:?Ladan chowdhury M.D. :1960???Age:62 Y???Sex:Female D ate:01/07/2023 Address:[address] [place] [address], [id number] Pcp:LASHAE ANDERSON Subjective: * Chief Complaints: * ???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 60-85+ * HPI: ???New/Follow-up Patient Consult:? PAT ENTERED MENOPAUSE IN 2012. SHE IS BUT SELDOM SEXUALLY ACTIVE. ?S/P RIGHT S&O FOR A BENIGN OVARIAN CYST IN 2006. ?IN 2013, HER PAP TEST SHOWED ASCUS, +HPV. COLPOSCOPY WAS NEGATIVE AND SUBSEQUENT PAP TESTS HAVE BEEN NEGATIVE. HER LAST ONE IN 2021 WAS NEGATIVE AND HPV NEGATIVE. ?PELVIC ULTRASOUND IN 2019 WAS NORMAL. ?HER LAST MAMMOGRAM DONE IN DEC 2021 SHOWED DENSE BREASTS AND WAS NORMAL. ?SHE HAD A COLONOSCOPY DONE IN 2016. ?WE WILL ORDER A BMD THIS YEAR. ?PFIZER X 3. ???Annual:? Patient presents for annual exam, ages 60-85, postmenopausal. ?General Health Maintenance:?Current breast complaints:?no breast pain, mass, discharge, or skin changes ?Urinary problems:?patient reports no urinary health problems or bowel health problems ?Calcium intake:?takes adequate calcium via diet and supplementation ?Significant CAREER DISCOVERY TEACHER problems:?no significant rfid technician symptoms or problems * ROS:?general:?no?chest pain.?no?palpitations.?no?headache.?no?cough.?no?shortness of breath.?no?fever.?no?unexplained weight loss.?no?nausea/vomiting.?no?change in bowel movements.?no blood in stool.?no?genitourinary complaints.?no?skin complaints.? * Medical History:? * Car Lubricator History:?/ Para?5/4.?Sexual activity?currently sexually active.?Last Pap Smear:?01/06/22 NIL, NEG HPV, 11/10/18 NIL, NEG HRHPV, 08/06/15 ASCUS, NEG HRHPV, 03/16/13, ASCUS, POS HRHPV.?Mammogram:?01/06/22 50-75% density, 01/03/21 50-75% density, 12/08/19 50-75% density, 07/04/18 50-75% density, 04/28/17 50-75% density, 04/23/16 50-75% density, 04/23/2015 with additiional views Rt side- Benign.?LMP and menses?menopause.? Control:?none.?Colonoscopy?03/2016.?CAREER DISCOVERY TEACHER HISTORY MISC.?08/07/15 DB counseling done. Suha risk 5.8%. No supplemental screening indicated.? * OB History:?Total pregnancies?5.?Total living children?4.?NVD?4.? * Surgical History:?Colposcopy Right Oopherectomy [facility] Teeth Extraction * Hospitalization/Major Diagno stic Procedure:?4 Vaginal Deliveries See Surgical Hx * Family History:?Mother: dece ased 79 yrs, diagnosed with Unspecified essential hypertension.?Father: 60 yrs, Colon Cancer, diagnosed with Unspecified essential hypertension.?Paternal aunt: (half sister of father): Breast Cancer dx'ed >age 50.?Son(s): Muscular Dystrophy.?Paternal Cousin: Esophageal Cancer.? Paternal Cousin: Breast Cancer. * Social History:?Tobacco Use:?Tobacco Use/Smoking?Are you a?nonsmoker ???Sexual History:?Sexual History?Had sex in the past 12 months (vaginal, oral, or anal)??Yes ?with?Men only ?Prevention strategies discussed:?Other ?Details of Sexual History?Are you sexually active??Yes ???Drugs/Alcohol:?Drugs?Have you used drugs other than those for medical reasons in the past 12 months??No ?Alcohol Screen (Audit-C)?Did you have a drink containing alcohol in the past year??Yes ?How often did you have a drink containing alcohol in the past year??2 to 4 times a month (2 points) ?How many drinks did you have on a typical day when you were drinking in the past year??1 or 2 drinks (0 point) ?Points?2 ?Interpretation?Negative ???Miscellaneous:?Children: yes, 4. ?no Domestic violence. ?Exercise: yes, Aerobics. ?Home smoke detector use: yes. ?Living with: spouse. ?Marital status: . ?Natural support system: yes. ?Occupation: Works full-time. ?no Sexual abuse. ?Sexually active: yes, monogamous relationship. ?no Verbal abuse. * Medications:?TakingGarlic 10 0 MG Tablet as directed Orally , Notes: unknown doseVitamin C 1000 MG Tablet 1 tablet Orally Once a dayZinc 25 MG Tablet 1 tablet Orally Once a dayhydroCHLOROthiazide 25 MG Tablet 1 Orally DAILYVitamin B Complex Tablet Orally CoQ-10 30 MG Capsule 1 capsule with a meal Orally Once a dayProbiotic - Capsule Orally Glucosamine 500 MG Capsule 1 capsule with a meal Orally Once a dayVitamin D 1000 UNIT Tablet 1 tablet Orally Once a dayMagnesium 300 MG Capsule 1 capsule with a meal Orally Once a dayLosartan Potassium 50 MG Tablet 1 tablet Orally Once a dayCinnamon 500 MG Capsule as directed Orally Rosuvastatin Calcium 5 MG Tablet Oral Apple Cider Vinegar 500 MG Tablet as directed Orally Taking Garlic 100 MG Tablet as directed Orally , Notes: unknown doseTaking Vitamin C 1000 MG Tablet 1 tablet Orally Once a dayTaking Zinc 25 MG Tablet 1 tablet Orally Once a dayTaking hydroCHLOROthiazide 25 MG Tablet 1 Orally DAILYTaking Vitamin B Complex Tablet Orally Taking CoQ-10 30 MG Capsule 1 capsule with a meal Orally Once a dayTaking Probiotic - Capsule Orally Taking Glucosamine 500 MG Capsule 1 capsule with a meal Orally Once a dayTaking Vitamin D 1000 UNIT Tablet 1 tablet Orally Once a dayTaking Magnesium 300 MG Capsule 1 capsule with a meal Orally Once a dayTaking Losartan Potassium 50 MG Tablet 1 tablet Orally Once a dayTaking Cinnamon 500 MG Capsule as directed Orally Taking Rosuvastatin Calcium 5 MG Tablet Oral Taking Apple Cider Vinegar 500 MG Tablet as directed Orally DiscontinuedMelatonin 5 MG Capsule 1 tablet at bedtime as needed with food Orally Once a dayCentrum - Tablet as directed Orally Vitamin E 400 UNIT Capsule 1 capsule Orally Once a dayZyrTEC nexium 1 tab Oral Calcium 1 tab Oral 5-HTP 50 MG Capsule 1 capsule with a meal Orally Once a dayHair Skin Nails - Capsule Orally Ocuvite Charity Root 500 MG Capsule as directed Orally Flonase Allergy Relief 50 MCG/ACT Suspension 1 spray in each nostril Nasally Once a dayTurmeric 500 MG Capsule as directed Orally Claritin 10 MG Tablet 1 tablet Orally Once a dayAtorvastatin Calcium 20 MG Tablet 1 tablet Orally Once a dayMedication List reviewed and reconciled with the patientDiscontinued Melatonin 5 MG Capsule 1 tablet at bedtime as needed with food Orally Once a dayDiscontinued Centrum - Tablet as directed Orally Discontinued Vitamin E 400 UNIT Capsule 1 capsule Orally Once a dayDiscontinued ZyrTEC Discontinued nexium 1 tab Oral Discontinued Calcium 1 tab Oral Discontinued 5-HTP 50 MG Capsule 1 capsule with a meal Orally Once a dayDiscontinued Hair Skin Nails - Capsule Orally Discontinued Ocuvite Discontinued Charity Root 500 MG Capsule as directed Orally Discontinued Flonase Allergy Relief 50 MCG/ACT Suspension 1 spray in each nostril Nasally Once a dayDiscontinued Turmeric 500 MG Capsule as directed Orally Discontinued Claritin 10 MG Tablet 1 tablet Orally Once a dayDiscontinued Atorvastatin Calcium 20 MG Tablet 1 tablet Orally Once a dayMedication List reviewed and reconciled with the patient * Allergies:?BENADRYL: Allergy no[Allergies Verified] Objective: * Vitals:?Ht: 63 in, Wt:167 lb s, BMI:29.58 Index, BP:140/82 mm Hg, Temp:96.9 F. * Examination: ???General Exam: ?CONSTITUTIONAL:?General Appearance:?alert, in no acute distress, normal, well nourished ?NECK/THYROID:?Inspection/Palpation:?normal ?Thyroid:?normal size and shape ?RESPIRATORY:?Auscultation: clear to auscultation bilaterally, Respiratory Effort: normal.?CARDIOVASCULAR:?Auscultation: regular rate and rhythm.?BREAST, Right:?Inspection/Palpation:?no discharge, no masses present, no nipple retraction, no skin changes, no skin dimpling, no tenderness, no lymphadenopathy, no axillary mass, no axillary tenderness ?BREAST, Left:?Inspection/Palpation:?no discharge, no masses present, no nipple retraction, no skin changes, no skin dimpling, no tenderness, no lymphadenopathy, no axillary mass, no axillary tenderness ?GASTROINTESTINAL:?Abdomen:?no masses, nontender, nondistended ?Liver and Spleen:?normal ?Hernias:?no hernias present, no inguinal adenopathy ?MUSCULOSKELETAL:?Inspection/Palpation:?no clubbing, cyanosis, or edema ?SKIN:?Skin:?normal ?NEURO/PSYCH:?Orientation:?time , place, person ?Mood/Affect:?normal?Genitourinary: ?EXTERNAL GENITALIA:?External Genitalia:?normal, no lesions ?VAGINA:?Vagina:?normal appearance, no abnormal discharge, no lesions ?BLADDER:?Bladder:?no mass, nontender ?URETHRA:?Urethra:?no erythema or lesions present ?CERVIX:?Cervix:?no lesions, nontender ?UTERUS:?Uterus:?nontender, normal contour, normal mobility, normal size ?ADNEXA:?Adnexa:?no masses, no tenderness ?ANUS AND PERINEUM:?Anus/Perineum:?visually normal??? Assessment: * Assessment: 1.?Encounter for gynecologic al examination (general) (routine) without abnormal findings - Z01.419?2.?Encounter for screening mammogram for malignant neoplasm of breast - Z12.31?3.?Encounter for screening for osteoporosis - Z13.820?4.?Inconclusive mammogram - R92.2?5.?Personal history of other diseases of the female genital tract - Z87.42? Plan: * Treatment: ? Value Reference Range ?PH 6.0 * ?PROTEIN trace * ?GLUCOSE NEG * ?BLOOD Neg * López,Tylsethpillo 01/07/2023 10:00:33 AM >BarryLadan Juwan 01/07/2023 10:26:37 AM > PAT IS PRE DIABETIC AND IS BEING MONITORED BY HER PCP. Notes: NO PAP TEST, DUE IN 2024.??2.?Encounter for screening mammogram for malignant neoplasm of breast?Imaging: MM Digital Mammo Screening Notes: REGULAR MAMMOGRAMS AND SBE'S WERE RECOMMENDED.??3.?Encounter for screening for osteoporosis?Imaging: BONE DENSITY* SCREENING BONE DENSITY, AND Z78.0-POST MENOPAUSAL Notes: BONE DENSITY WAS ORDERED.??4.?Inconclusive mammogram? Notes: DISCUSSED DENSE BREASTS ON MAMMOGRAM AND ITS IMPLICATIONS. 3D MAMMOGRAMS WERE RECOMMENDED.??5.?Personal history of other diseases of the female genital tract? Notes: DISCUSSED PREVIOUS HX OF ABNORMAL PAP TEST AND RIGHT BENIGN OVARIAN CYST.?? * Imaging:? * ?Imaging: MAMMOGRAM, SCR EENING * Procedure Codes:? * Preventive Medicine:? ??YOUR PREVENTIVE WELLNESS PLAN:?Osteoporosis prevention?Calcium, D, strength training.?Breast Cancer Screening (Mammogram):?annually.?Cervical Cancer Screening (Pap Smear):?q 3 years with HPV screen.?Colorectal Cancer Screening:?q 10 years.? * Follow Up:?1 Year * Images: Billing Information: * Visit Code:? 27190 Preventive Care Est Pt. Age 65 and over. * Procedure Codes:? * Sign off status: Completed true * Appointment Provider:?Ladan Barry M.D. Date:?01/07/2023 Generated for Cristela aguiar/Jael/Ijeomaitting on:?04/29/2024 07:42 AM EST History and Physical Notes * HPI (History of Present Illness) Category Sub-Category Detail Notes Category Not es New/Follow-up Patient Consult PAT ENTERED MENOPAUSE IN 2012. SHE IS BUT SELDOM SEXUALLY ACTIVE. S/P RIGHT S&O FOR A BENIGN OVARIAN CYST IN 2006. IN 2013, HER PAP TEST SHOWED ASCUS, +HPV. COLPOSCOPY WAS NEGATIVE AND SUBSEQUENT PAP TESTS HAVE BEEN NEGATIVE. HER LAST ONE IN 2021 WAS NEGATIVE AND HPV NEGATIVE. PELVIC ULTRASOUND IN 2019 WAS NORMAL. HER LAST MAMMOGRAM DONE IN DEC 2021 SHOWED DENSE BREASTS AND WAS NORMAL. SHE HAD A COLONOSCOPY DONE IN 2016. WE WILL ORDER A BMD THIS YEAR. BlockScore X 3. Annual General Health Maintenance: Current breast complaints:: no breast pain, mass, discharge, or skin changes Urinary problems:: patient r eports no urinary health problems or bowel health problems Calcium intake:: takes adequ ate calcium via diet and supplementation Significant CAREER DISCOVERY TEACHER problems:: n o significant rfid technician symptoms or problems Examination Category Sub-Category Detail Notes Category Not es General Exam CONSTITUTIONAL: General Appearan ce:: alert, in no acute distress, normal, well nourished NECK/THYROID: Thyroid:: normal size and shape Inspection/Palpation:: normal RESPIRATORY: Auscultation: clear to auscultation bilaterally, Respiratory Effort: normal CARDIOVASCULAR: Auscultation: regula r rate and rhythm GASTROINTESTINAL: Abdomen:: no masses, nontender , nondistended Liver and Spleen:: normal Hernias:: no hernias present, no inguina l adenopathy MUSCULOSKELETAL: Inspection/Palpation:: no clubb ing, cyanosis, or edema SKIN: Skin:: normal NEURO/PSYCH: Mood/Affect:: normal Orientation:: time , place, person BREAST, Right: Inspection/Palpation :: no discharge, no masses present, no nipple retraction, no skin changes, no skin dimpling, no tenderness, no lymphadenopathy, no axillary mass, no axillary tenderness BREAST, Left: Inspection/Palpation :: no discharge, no masses present, no nipple retraction, no skin changes, no skin dimpling, no tenderness, no lymphadenopathy, no axillary mass, no axillary tenderness Genitourinary EXTERNAL GENITALIA: External Genitalia:: nor mal, no lesions VAGINA: Vagina:: normal appearance, no a bnormal discharge, no lesions BLADDER: Bladder:: no mass, nontender URETHRA: Urethra:: no erythema or lesions present CERVIX: Cervix:: no lesions, nontender UTERUS: Uterus:: nontender, normal conto ur, normal mobility, normal size ADNEXA: Adnexa:: no masses, no tendernes s ANUS AND PERINEUM: Anus/Perineum:: visually norm al
--- OUTSIDE RECORDS SUMMARY | 2024-04-29 07:42 | XMS_ITS ---
Author Organization [facility] Address [address] [place] [address] Care Team Providers Care Exchange Engineer Name Role Phone LASHAE ANDERSON Primary Care Provider Ladan Smith Unavailable [phone] Allergies Allergen (clinical drug ingredient) Drug/Non Drug Allergy documented on EMR Reaction Allergy Type Onset Date Status diphenhydramine BENADRYL Unknown Drug Allergy A ctive REASON FOR VISIT Annual SAND OPERATOR Physical, Annual SAND OPERATOR Physical 60-85+ Medications Medication SIG (Take, Route, Frequency, Duration) Notes Start Date End Date Status Vitamin D 1000 UNIT 1 tablet Orally Once a day Active Probiotic - Orally Active Losartan Potassium 50 MG 1 tablet Orally Once a day Active Magnesium 300 MG 1 capsule with a meal Orally Once a day Active hydroCHLOROthiazide 25 MG 1 Orally DAILY 3 Active Vitamin C 1000 MG 1 tablet Orally Once a day for 30 day(s) Active Glucosamine 500 MG 1 capsule with a meal Orally Once a day Active Garlic 100 MG as directed Orally unknown dose Active Apple Cider Vinegar 500 MG as directed Orally Active Vitamin E Active CoQ-10 30 MG 1 capsule with a meal Orally Once a day Active Rosuvastatin Calcium 5 MG Oral for 90 Active Cinnamon 500 MG as directed Orally Active Vitamin B Complex Orally Ac tive Zinc 25 MG 1 tablet Orally Once a day for 30 day(s) Active Social History Tobacco Use: Social History Observation Description Date Details (start date - stop date) Never Smoker NA - NA Sexual History Question Answer Notes Had sex in the past 12 months (vaginal, oral, or anal)? Yes with Men only Prevention strategies discussed: Other AUDIT-C (Standard) Question Answer Notes Did you have a drink contain ing alcohol in the past year? Yes How often did you have six o r more drinks on one occasion in the past year? Never (0 point) How many drinks did you have on a typical day when you were drinking in the past year? 1 or 2 drinks (0 point) How often did you have a dri nk containing alcohol in the past year? 2 to 4 times a month (2 points) Points 2 Interpretation Negative Tobacco Control (Standard) Question Answer Notes Tobacco use: Nonsmoker Vital Signs Temperature 97.7 degrees Fahrenheit 01/14/20 24 Blood pressure systolic 136 mm Hg 01/14/20 24 Blood pressure diastolic 80 mm Hg 024 Height 63 in 01/14/2024 Weight 165 lbs 01/14/2024 BMI 29.23 kg/m2 01/14/2024 Encounters Encounter Location Date Provider Diagnosis [address] [place] [address] 01/14/2024 Ladan Barry Encounter for screening mammogram for malignant neoplasm of breast Z12.31 ; Personal history of other diseases of the female genital tract Z87.42 ; Dense breasts, unspecified R92.30 and Encounter for gynecological examination (general) (routine) without abnormal findings Z01.419 Assessments Encounter Date Diagnosis (ICD Code) Assessment Notes Treatment Notes Treatment Clinical Notes Section Notes 01/14/2024 Encounter for screening mammogram for malignant neoplasm of breast (ICD-10 - Z12.31) REGULAR MAMMOGRAMS AND SBE'S WERE RECOMMENDED. 01/14/2024 Personal history of other diseases of the female genital tract (ICD-10 - Z87.42) PREVIOUS JX OF POSITIVE HR HPV HAS RESOLVED. 01/14/2024 Dense breasts, unspecified (ICD-10 - R92.30) DISCUSSED DENSE BREASTS ON MAMMOGRAM AND ITS IMPLICATIONS. 3D MAMMOGRAMS WERE RECOMMENDED. 01/14/2024 Encounter for gynecological examination (general) (routine) without abnormal findings (ICD-10 - Z01.419) NO PAP TEST, DUE IN 2024. Plan Of Treatment Treatment Notes Assessment Notes Encounter for screening mamm ogram for malignant neoplasm of breast REGULAR MAMMOGRAMS AND SBE'S WERE RECOMMENDED. Personal history of other di seases of the female genital tract PREVIOUS JX OF POSITIVE HR HPV HAS RESOLVED. Dense breasts, unspecified DISCUSSED DENSE BREASTS ON MAMMOGRAM AND ITS IMPLICATIONS. 3D MAMMOGRAMS WERE RECOMMENDED. Encounter for gynecological examination (general) (routine) without abnormal findings NO PAP TEST, DUE IN 2024. Pending Test Test Name Order Date MAMMOGRAM, SCREENING 01/14/2024 Urinalysis 01/14/2024 MM Digital Mammo Screening 01/14/2024 Next Appt Details Follow Up: 1 Year, Reason: Provider Name:Ladan chowdhury, 01/19/2025 10:40:00 AM, [address], [address], [place], [address], Progress Notes * CHACKOPHILDOB:1960 ( 63 yo F)Acc No.[id number]:01/14/2024 PROGRESS NOTES Patient:?PHIL CHACKO Appointment Provider:?Ladan chowdhury M.D. :1960???Age:63 Y???Sex:Female D ate:01/14/2024 Address:[address] [place] [address], [id number] Pcp:LASHAE ANDERSON Subjective: * Chief Complaints: * ???Annual SAND OPERATOR PhysicalAnnual SAND OPERATOR Physical 60-85+ * HPI: ???New/Follow-up Patient Consult:? PAT ENTERED MENOPAUSE IN 2012.? SHE IS BUT SELDOM SEXUALLY ACTIVE. S/P RIGHT S&O IN 2006 FOR A BENIGN OVARIAN CYST. HER PAP TEST IN 2013 SHOWED ASCUS, +HPV.? COLPOSCOPY WAS NEGATIVE AND HER SUBSEQUENT PAP TESTS INCLUDING THE LAST ONE IN MAY 2023 HAVE BEEN NEGATIVE AND HPV NEGATIVE. HER LAST MAMMOGRAM DONE IN MAY 2023 SHOWED DENSE BREASTS AND WAS NORMAL.? HER LIFETIME BREAST CA RISK IS 8.1%. HER LAST BMD IN 2023 WAS NORMAL. SHE HAD A COLONOSCOPY DONE IN 2016. PFIZER X 3. ???Annual:? Patient presents for annual exam, ages 60-85, postmenopausal. ?General Health Maintenance:?Current breast complaints:?no breast pain, mass, discharge, or skin changes ?Urinary problems:?patient reports no urinary health problems or bowel health problems ?Calcium intake:?takes adequate calcium via diet and supplementation ?Significant SAND OPERATOR problems:?no significant drilling field specialist symptoms or problems * ROS:?general:?no?chest pain.?no?palpitations.?no?headache.?no?cough.?no?shortness of breath.?no?fever.?no?unexplained weight loss.?no?nausea/vomiting.?no?change in bowel movements.?no blood in stool.?no?genitourinary complaints.?no?skin complaints.? * Medical History:? * Hearings Reporter History:?/ Para?07/02.?Sexual activity?currently sexually active.?Last Pap Smear:?01/06/22 NIL, NEG HPV, 11/10/18 NIL, NEG HRHPV, 08/06/15 ASCUS, NEG HRHPV, 03/16/13, ASCUS, POS HRHPV.?Mammogram:?06/01/23 50-75% density, 01/06/22 50-75% density, 01/03/21 50-75% density, 12/08/19 50-75% density, 07/04/18 50-75% density, 04/28/17 50-75% density, 04/23/16 50-75% density, 04/23/2015 with additiional views Rt side- Benign.?LMP and menses?menopause.? Control:?none.?Colonoscopy?03/2016.?Bone Density:?06/03/23 Normal.?SAND OPERATOR HISTORY MISC.?08/07/15 DB counseling done. Suha risk 5.8%. No supplemental screening indicated.? * OB History:?Total pregnancies?5.?Total living children?4.?NVD?4.? * Surgical History:?Colposcopy Right Oopherectomy [place] Teeth Extraction * Hospitalization/Major Diagno stic Procedure:?4 Vaginal Deliveries See Surgical Hx * Family History:?Mother: dece ased 79 yrs, diagnosed with Unspecified essential hypertension.?Father: 60 yrs, Colon Cancer, diagnosed with Unspecified essential hypertension.?Paternal aunt: (half sister of father): Breast Cancer dx'ed >age 50.?Son(s): Muscular Dystrophy.?Paternal Cousin: Esophageal Cancer.? Paternal Cousin: Breast Cancer. * Social History:?Tobacco Use:?Tobacco Control (Standard)?Tobacco use:?Nonsmoker ???Sexual History:?Sexual History?Had sex in the past 12 months (vaginal, oral, or anal)??Yes ?with?Men only ?Prevention strategies discussed:?Other ?Details of Sexual History?Are you sexually active??Yes ???Drugs/Alcohol:?Drugs?Have you used drugs other than those for medical reasons in the past 12 months??No ???Miscellaneous:?Children: yes, 4. ?Domestic violence: no. ?Exercise: yes, Aerobics. ?Home smoke detector use: yes. ?Living with: spouse. ?Marital status: . ?Natural support system: yes. ?Occupation: Works full-time. ?Sexual abuse: no. ?Sexually active: yes, monogamous relationship. ?Verbal abuse: no. ???Drug/Alcohol:?AUDIT-C (Standard)?Did you have a drink containing alcohol in the past year??Yes ?How often did you have six or more drinks on one occasion in the past year??Never (0 point) ?How many drinks did you have on a typical day when you were drinking in the past year??1 or 2 drinks (0 point) ?How often did you have a drink containing alcohol in the past year??2 to 4 times a month (2 points) ?Points?2 ?Interpretation?Negative * Medications:?TakingVitamin E Garlic 100 MG Tablet as directed Orally , Notes to Pharmacist: unknown doseVitamin C 1000 MG Tablet 1 tablet Orally Once a day hydroCHLOROthiazide 25 MG Tablet 1 Orally DAILY Probiotic - Capsule Orally Vitamin D 1000 UNIT Tablet 1 tablet Orally Once a day Magnesium 300 MG Capsule 1 capsule with a meal Orally Once a day Losartan Potassium 50 MG Tablet 1 tablet Orally Once a day Cinnamon 500 MG Capsule as directed Orally Rosuvastatin Calcium 5 MG Tablet Oral Zinc 25 MG Tablet 1 tablet Orally Once a day Vitamin B Complex Tablet Orally CoQ-10 30 MG Capsule 1 capsule with a meal Orally Once a day Glucosamine 500 MG Capsule 1 capsule with a meal Orally Once a day Apple Cider Vinegar 500 MG Tablet as directed Orally Medication List reviewed and reconciled with the patientTaking Vitamin E Taking Garlic 100 MG Tablet as directed Orally , Notes to Pharmacist: unknown doseTaking Vitamin C 1000 MG Tablet 1 tablet Orally Once a day Taking hydroCHLOROthiazide 25 MG Tablet 1 Orally DAILY Taking Probiotic - Capsule Orally Taking Vitamin D 1000 UNIT Tablet 1 tablet Orally Once a day Taking Magnesium 300 MG Capsule 1 capsule with a meal Orally Once a day Taking Losartan Potassium 50 MG Tablet 1 tablet Orally Once a day Taking Cinnamon 500 MG Capsule as directed Orally Taking Rosuvastatin Calcium 5 MG Tablet Oral Taking Zinc 25 MG Tablet 1 tablet Orally Once a day Taking Vitamin B Complex Tablet Orally Taking CoQ-10 30 MG Capsule 1 capsule with a meal Orally Once a day Taking Glucosamine 500 MG Capsule 1 capsule with a meal Orally Once a day Taking Apple Cider Vinegar 500 MG Tablet as directed Orally Medication List reviewed and reconciled with the patient * Allergies:?BENADRYL: Allergy no[Allergies Verified] Objective: * Vitals:?Ht: 63 in, Wt:165lbs , BMI:29.23Index, BP:136/80mm Hg, Temp:97.7F. * Examination: ???General Exam: ?CONSTITUTIONAL:?General Appearance:?alert, in [...] PERINEUM:?Anus/Perineum:?visually normal??? Assessment: * Assessment: 1.?Encounter for screening m ammogram for malignant neoplasm of breast - Z12.31???2.?Personal history of other diseases of the female genital tract - Z87.42???3.?Dense breasts, unspecified - R92.30???4.?Encounter for gynecological examination (general) (routine) without abnormal findings - Z01.419 (Primary)??? Plan: * Treatment: 2.?Encounter for screening m ammogram for malignant neoplasm of breast?Imaging: MM Digital Mammo Screening Notes: REGULAR MAMMOGRAMS AND SBE'S WERE RECOMMENDED.?? 3.?Personal history of other diseases of the female genital tract? Notes: PREVIOUS JX OF POSITIVE HR HPV HAS RESOLVED.?? 4.?Dense breasts, unspecifie d? Notes: DISCUSSED DENSE BREASTS ON MAMMOGRAM AND ITS IMPLICATIONS. 3D MAMMOGRAMS WERE RECOMMENDED.?? * Imaging:? * ?Imaging: MAMMOGRAM, SCR EENING * Labs:? * ?Lab: Urinalysis * Procedure Codes:? * Preventive Medicine:? ??YOUR PREVENTIVE WELLNESS PLAN:?Osteoporosis prevention?Calcium, D, strength training.?Breast Cancer Screening (Mammogram):?annually.?Cervical Cancer Screening (Pap Smear):?q 3 years with HPV screen.?Colorectal Cancer Screening:?q 10 years.? * Follow Up:?1 Year * Images: Billing Information: * Visit Code:? 75015 Preventive Care Est Pt. Age 65 and over. * Procedure Codes:? * Sign off status: Completed Addendum: * ? true * Appointment Provider:?Ladan Barry M.D. Date:?01/14/2024 Generated for Cristela aguiar/Jael/Ijeomaitting on:?04/29/2024 07:42 AM EST History and Physical Notes * HPI (History of Present Illness) Category Sub-Category Detail Notes Category Not es New/Follow-up Patient Consult PAT ENTERED MENOPAUSE IN 2012. SHE IS BUT SELDOM SEXUALLY ACTIVE. S/P RIGHT S&O IN 2006 FOR A BENIGN OVARIAN CYST. HER PAP TEST IN 2013 SHOWED ASCUS, +HPV. COLPOSCOPY WAS NEGATIVE AND HER SUBSEQUENT PAP TESTS INCLUDING THE LAST ONE IN MAY 2023 HAVE BEEN NEGATIVE AND HPV NEGATIVE. HER LAST MAMMOGRAM DONE IN MAY 2023 SHOWED DENSE BREASTS AND WAS NORMAL. HER LIFETIME BREAST CA RISK IS 8.1%. HER LAST BMD IN 2023 WAS NORMAL. SHE HAD A COLONOSCOPY DONE IN 2016. PFIZER X 3. Annual General Health Maintenance: Current breast complaints:: no breast pain, mass, discharge, or skin changes Urinary problems:: patient r eports no urinary health problems or bowel health problems Calcium intake:: takes adequ ate calcium via diet and supplementation Significant SAND OPERATOR problems:: n o significant drilling field specialist symptoms or problems Examination Category Sub-Category Detail Notes Category Not es General Exam CONSTITUTIONAL: General Appearan ce:: alert, in no acute distress, normal, well nourished NECK/THYROID: Thyroid:: normal size and shape Inspection/Palpation:: normal RESPIRATORY: Auscultation: clear to auscultation bilaterally, Respiratory Effort: normal CARDIOVASCULAR: Auscultation: regula r rate and rhythm GASTROINTESTINAL: Hernias:: no hernias present, no inguinal adenopathy Liver and Spleen:: normal Abdomen:: no masses, nontender, nondiste nded MUSCULOSKELETAL: Inspection/Palpation:: no clubb ing, cyanosis, or [...]
[2024-04-29 07:55] LABS: MANUAL DIFF FLAG NO
[2024-04-29 08:32] LABS: Basophils Absolute Auto 0.1 X10*3/uL (0.0-0.2); Basophils Percent Auto 1.2 % (0-2); Eosinophils Absolute Auto 0.2 X10*3/uL (0.0-0.4); Eosinophils Percent Auto 3.4 % (0-4); Hematocrit 42.1 % (37.0-47.0); Hemoglobin 14.6 g/dl (12.0-16.0); Imm Gran Abs Auto 0.01 X10*3/uL (0.00-0.03); Imm Gran Pct Auto 0.2 % (0.0-0.4); Lymphocytes Absolute Auto 1.9 X10*3/uL (1.2-4.9); Lymphocytes Percent Auto 36.9 % (20-40); Mean Corpuscular HGB Conc 34.7 g/dl (31.0-35.0); Mean Corpuscular Hemoglobin 29.4 pg (27.0-33.0); Mean Corpuscular Volume 84.7 fL (80.0-98.0); Mean Platelet Volume 9.1 fL (9.4-12.3); Monocytes Absolute Auto 0.4 X10*3/uL (0.1-1.2); Monocytes Percent Auto 8.8 % (2-11); Neutrophils Absolute Auto 2.5 x10*3/uL (2.0-8.3); Neutrophils Percent Auto 49.5 % (45-73); Platelet Count 271 X10*3/uL (160-400); Red Blood Count 4.97 X10*6/uL (4.20-5.50); Red Cell Distribution Width 12.1 % (11.0-16.0)
[2024-04-29 08:34] LABS: Appearance Urine Clear; Color Urine Yellow; Glucose Urine UA Negative (Negative); Leukocyte Esterase Urine Negative (Negative); Nitrite Urine Negative (Negative); Specific Gravity - Urine <= 1.005 (1.005-1.025); Urine Blood Negative (Negative); Urine Ketones Negative (Negative); Urine Protein Negative (Neg-Trace)
[2024-04-29 08:52] LABS: Estimated Average Glucose 128 mg/dL; Hemoglobin A1C 161.5353 umol/L; Hemoglobin A1c % 6.1 % (<6.0); Total Hemoglobin (HGBA1C) 3772.3859 umol/L
[2024-04-29 09:02] LABS: Alanine Aminotransferase 40 U/L (0-31); Albumin Level 4.4 g/dL (3.5-5.0); Alkaline Phosphatase 55 U/L (39-117); Anion Gap 14 (12-20); Aspartate Amino Transferase 25 U/L (5-31); Bilirubin Total 0.7 mg/dL (0.0-1.0); Blood Urea Nitrogen 10 mg/dL (9-16); Calcium 9.6 mg/dL (8.4-10.2); Carbon Dioxide 27 mmol/L (22-29); Chloride 105 mmol/L (96-108); Cholesterol 204 mg/dL (<200); Estimated Glomerular Filt Rate > 60; Glucose Fasting 107 mg/dL (60-99); HDL Cholesterol 57 mg/dL (>40); LDL Cholesterol Calculated 95 mg/dL (<100); Potassium 3.7 mmol/L (3.3-5.1); Sodium 142 mmol/L (135-145); Total Protein 7.8 g/dL (6.5-8.0); Triglycerides 264 mg/dL (<150)
[2024-04-29 09:23] LABS: TSH reflex Free T4 0.82 uIU/mL (0.32-4.0); Vitamin D 25-OH Total 43.7 ng/mL (>30)
[2024-04-29 09:28] LABS: Creatinine Urine 31.44 mg/dL; Microalbumin Urine < 5.0 mg/L
== END 2024-04-29 07:40 | disposition home or self-care (01) ==
LOC: HO.LAB 07:39
PROVIDERS: PCP Internal Medicine; Visit Provider Internal Medicine
DX: D64.9 Anemia, unspecified (principal); E78.00 Pure hypercholesterolemia, unspecified; E11.9 Type 2 diabetes mellitus without complications; R30.0 Dysuria; E55.9 Vitamin D deficiency, unspecified
CPT/HCPCS: 36415; 80053; 80061; 81003; 82043; 82306; 82570; 83036; 84443; 85025

== ENCOUNTER 2024-05-02 10:02 | Outpatient (AMB) | payer OTHER, SELFPAY ==
[2024-05-02 10:07] VITALS: BP 130/82; PULSE 92; O2SAT 98
--- NOTE | 2024-05-02 10:07 | MHC.PC.OV ---
Vital Signs 05/02/24 10:07 Height 5 ft 3 in Weight 169 lb 2 oz BMI 30.0 BP 130/82 Blood Pressure Location Lt brachial Position Sitting Pulse 92 Pulse Source Pulse Oximeter Pulse Oximetry (%) 98 Oxygen Delivery Method Room Air Intake Visit Reasons: HTN, hyperlipidemia, IFG, elevated LFTs Windows Phone Developer Required: No Accompanied by: Self / Same As Patient Allergies latex Allergy (Unknown, Verified 05/02/24 10:34) Unknown diphenhydramine [From BENADRYL] Adverse Reaction (Severe, Verified 05/02/24 10:34) TACHYCARDIA/PALPITATIONS Medication List - Last Reconciled 05/02/24 by Zachariah Hickman MD ascorbate calcium (vitamin C) 500 mg PO DAILY cholecalciferol (vitamin D3) (Vitamin D3) 25 mcg PO DAILY coenzyme Q10 (Ultra CoQ10) 75 mg PO DAILY garlic 1,000 mg PO DAILY glucosamine HCl 1,500 mg PO DAILY hydrochlorothiazide 25 mg PO DAILY 90 days L. acidophilus/Bifid. animalis 2.5 billion cell (Daily Probiotic) caps PO .QD loratadine 10 mg PO DAILY PRN losartan 50 mg PO DAILY 90 days magnesium oxide 400 mg PO DAILY rosuvastatin 5 mg PO DAILY vitamin B complex 1 tab PO DAILY Tobacco use date assessed: 05/02/24 Dental Screening Dental Screen Date: 05/02/24 Did you have a dental visit in the last 12 months?: Yes Did you have a dental problem in the last 6 months where you did not have access to dental care?: No Was dental information given to patient?: Patient has dentist HPI HTN, hyperlipidemia, IFG, elevated LFTs HPI Details Patient comes in today for her follow up visit States that she feels okay but has been experiencing increased pain over her lower back lately She has gained some weight while on vacation in the [facility] over the past month or so - admits to poor compliance with her diet while on vacation She denies any headaches or dizziness Denies any chest pain, no SOB No nausea/vomiting, no abdominal pain No change in bowel habits noted She had her follow up labs done a few days ago - to discuss her results [facility] Medical History Overweight (BMI 25.0-29.9) Anxiety Insomnia Elevated LFTs Allergic rhinitis Vitamin D deficiency Pure hypercholesterolemia Impaired fasting glucose Benign essential hypertension Surgical History Status post right oophorectomy (~2006) Family History Father Colon cancer Hypertension Stroke Mother Hypertension Heart attack Stroke Diabetes mellitus Daughter In good health Son In good health Son In good health Son In good health Sister No problems noted. Brother No problems noted. 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 1. Little interest or pleasure in doing things: not at all 2. Feeling down, depressed, or hopeless: not at all 3. Trouble falling or staying asleep, or sleeping too much: not at all 4. Feeling tired or having little energy: not at all 5. Poor appetite or overeating: not at all 6. Feeling bad about yourself - or that you are a failure or have let yourself or your family down: not at all 7. Trouble concentrating on things, such as reading the newspaper or watching television: not at all 8. Moving or speaking so slowly that other people could have noticed. Or the opposite - being so fidgety or restless that you have been moving around a lot more than usual: not at all 9. Thoughts that you would be better off or of hurting yourself in some way: not at all Total score: 0 Depression Screening Interpretation: Negative Depression Screening Done: Yes 07156 - PHQ-9 Billing: Yes Source: Developed by Drs. Cam Vizcarra, Aileen Cardoza, Tim Lao and colleagues, with an educational quinn from [employer]. Thrive Questionnaire Date Thrive assessed: 05/02/24 I am a: Patient What is your living situation today?: I have a steady place to live Within the past 12 months, did the food you bought not last and you didn't have the money to get more?: Never true Within the past 12 months, did you worry whether your food would run out before you got money to buy more?: Never true Do you have trouble paying for medicines?: No Do you have trouble getting transportation to medical appointments?: No Do you have trouble paying your heating and electricity bill?: No Do you have trouble taking care of your child, family member or friend?: No Do you have trouble with day-to-day activities such as bathing, preparing meals, shopping, managing finances, etc.?: No Are you currently unemployed and looking for a job?: No Are you interested in more education?: No Please select the resources that you would like help with: None Currently or been in a relationship where the following occur: No concerns reported THRIVE Score: 0 AUDIT C Alcohol Use Questionnaire (AUDIT-C) 1. How often do you have a drink containing alcohol?: Never 3. How often do you have six or more drinks on one occasion?: Never Total Score: 0 Score Reviewed/Action Taken: Yes GENARO-7 AMB Questionnaire GENARO-7 Date GENARO - 7 assessed: 05/02/24 Feeling nervous, anxious, or on edge: 0 = Not at all Not being able to stop or control worryin = Not at all Worrying too much about different things: 0 = Not at all Trouble relaxin = Not at all Being so restless that it is hard to sit still: 0 = Not at all Becoming easily annoyed or irritable: 0 = Not at all Feeling afraid as if something awful might happen: 0 = Not at all Total GENARO-7 score (0-4 normal; 5-9 mild; 10-14 moderate; 15-21 severe): 0 Source: Developed by Drs. Cam Vizcarra, Aileen Cardoza, Tim Lao and colleagues, with an educational quinn from [employer]. Review of Systems Const Denies chills, Denies fatigue, Denies fever(s) and Denies headache(s) ENT Denies dysphagia, Denies dizziness, Denies otalgia, Denies headache(s), Denies neck pain, Denies odynophagia and Denies sore throat Card Denies chest pain, Denies palpitations and Denies dyspnea Resp Denies chest congestion, Denies cough and Denies dyspnea GI Denies abdominal pain, Denies constipation, Denies dysphagia, Denies heartburn, Denies diarrhea, Denies nausea, Denies odynophagia and Denies vomiting Denies difficulty voiding, Denies nocturia, Denies dysuria and Denies urinary urgency Musc Denies back pain, Denies arthralgias and Denies neck pain Skin/Breast Denies rash Neuro Denies dizziness and Denies headache(s) Endo Denies fatigue and Denies palpitations Physical exam (Primary Care) Vital Signs: Last Vital Signs Pulse 92 05/02/24 10:07 BP 130/82 05/02/24 10:07 Pulse Ox 98 05/02/24 10:07 Oxygen Delivery Method Room Air 05/02/24 10:07 BMI result Body Mass Index 30.0 Tobacco/Smoking Status: Tobacco use Status Tobacco use date assessed 05/02/24 05/02/24 10:09 Patient Tobacco Use Status Never used Tobacco 05/02/24 10:09 e-Cigarette/Vaping Use Never Used 05/02/24 10:09 PHQ-9: PHQ-9 Score PHQ-9: Total score 0 05/02/24 10:09 Depression Screening Interpretation: Negative Thrive Assessment: Date of Thrive Assessment Date Thrive assessed 05/02/24 05/02/24 10:09 Currently or been in a relationship where the following occur: No concerns reported Const General: no acute distress and alert HENMT Ears: TM's normal bilaterally and EAC's normal Throat: Yes posterior oropharynx normal and Yes tonsils normal (no TP congestion noted) Neck Neck: Yes no lymphadenopathy and Yes supple Thyroid: Thyroid normal Resp Auscultation: clear to auscultation bilaterally, no rales and no wheezes Cardio Rate: regular rate Rhythm: regular rhythm Heart sounds: no murmurs GI Palpation (GI): Soft to palpation and nontender Auscultation: normal bowel sounds General: Yes no CVA tenderness Back/Spine/Pelvis Back: no CVA tenderness Thoracic/Lumbar Spine: No lumbar spinal tenderness Skin Rashes: no rashes Extrem General: Yes no clubbing, cyanosis or edema Results Reviewed Results Reviewed: Laboratory Tests 04/29/24 04/29/24 07:44 07:53 WBC 5.0 Hgb 14.6 Hct 42.1 Plt Count 271 Sodium 142 Potassium 3.7 Creatinine 0.63 Estimated GFR > 60 Fasting Glucose 107 H Hemoglobin A1c % 6.1 H Calcium 9.6 AST 25 ALT 40 H Triglycerides 264 H Cholesterol 204 H LDL Cholesterol, Calc 95 HDL Cholesterol 57 25-OH Vitamin D Total 43.7 TSH 0.82 Ur Specific [place] <= 1.005 Urine Protein Negative Urine Glucose (UA) Negative Urine Blood Negative Urine Nitrite Negative Ur Leukocyte Esterase Negative Coding Level of Care Code Est Pt Level 4 (40330) Diagnoses Pure hypercholesterolemia E78.00 Benign essential hypertension I10 Impaired fasting glucose R73.01 Elevated LFTs R79.89 Allergic rhinitis, unspecified seasonality, unspecified trigger J30.9 Allergic rhinitis trigger: unspecified Allergic rhinitis seasonality: unspecified Vitamin D deficiency E55.9 Insomnia, unspecified type G47.00 Insomnia type: unspecified Anxiety F41.9 Overweight (BMI 25.0-29.9) E66.3 Additional Codes PHQ-9 - 29709 - PHQ-9 Billing: Yes ([id number]) Assessment & Plan Assessment & Plan (1) Pure hypercholesterolemia: Code(s): E78.00 - Pure hypercholesterolemia, unspecified Category: Medical Plan: Results of her labs done a few days ago reviewed and discussed with patient - her triglyceride level is still elevated but has improved slightly from previous Reinforced low cholesterol diet She went back home to the [facility] for about a month in January 2024 and admits that she was not very compliant with her diet while she was on vacation Continue Rosuvastatin 5 mg QD for now Will recheck her labs and fasting lipids in 4 months follow-up (2) Benign essential hypertension: Code(s): I10 - Essential (primary) hypertension Category: Medical Plan: Reinforced low sodium diet - goal is systolic BP of at least 120 to 130 mm or less Continue Losartan 50 mg QD and HCTZ 25 mg QD Patient is reminded to continue monitoring her blood pressure regularly (3) Impaired fasting glucose: Code(s): R73.01 - Impaired fasting glucose Category: Medical Plan: Her HgbA1c was at 6.1% on her labs done a few days ago; was previously at 6.0% a few months ago Reinforced low calorie diet /exercise as tolerated (4) Elevated LFTs: Code(s): R79.89 - Other specified abnormal findings of blood chemistry Category: Medical Plan: Her LFTs have increased slightly from previous - AST remains normal but her ALT is still slightly elevated Hepatitis profile done a couple of years ago came back negative; abdominal US done at [facility] in April 2022 revealed (+) hepatosteatosis, sonogram is otherwise normal Patient is encouraged to continue to try to lose weight and exercise regularly - reassured that her LFTs should completely return to normal with sustained weight loss Will continue to monitor her LFTs regularly (5) Allergic rhinitis: Code(s): J30.9 - Allergic rhinitis, unspecified Category: Medical Qualifiers: Allergic rhinitis trigger: unspecified Allergic rhinitis seasonality: unspecified Qualified Code(s): J30.9 - Allergic rhinitis, unspecified Plan: Continue Loratadine 10 mg QD as needed and Fluticasone nasal spray 50 mcg 1 spray in each nostril daily as needed Patient has not needed to use her Albuterol inhaler in a while now (6) Vitamin D deficiency: Code(s): E55.9 - Vitamin D deficiency, unspecified Category: Medical Plan: Continue Vitamin D3 1000 units QD (7) Insomnia: Code(s): G47.00 - Insomnia, unspecified Category: Medical Qualifiers: Insomnia type: unspecified Qualified Code(s): G47.00 - Insomnia, unspecified Plan: Sleep hygiene reinforced She used to take Trazodone 50 mg once a day at bedtime as needed but states that she no longer needs to take any Rx (8) Anxiety: Code(s): F41.9 - Anxiety disorder, unspecified Category: Medical Plan: She used to take Lorazepam 0.5 mg 1 to 2 times a day as needed but also states that she has not needed to take Lorazepam in a long time now (9) Overweight (BMI 25.0-29.9): Code(s): E66.3 - Overweight Category: Medical Plan: Reinforced diet/exercise as tolerated/lose weight - she has gained some weight since her last visit Plan Follow up in 4 months Orders: Orders Comprehensive [place]. Panel Fast 4 Months E78.00 - Pure hypercholesterolemia, unspecified TSH reflex Free T4 4 Months E78.00 - Pure hypercholesterolemia, unspecified Vitamin D 25-OH Total 4 Months E55.9 - Vitamin D deficiency, unspecified Complete Blood Count Auto Diff 4 Months D64.9 - Anemia, unspecified Lipid Panel 4 Months E78.00 - Pure hypercholesterolemia, unspecified Hemoglobin A1c 4 Months E11.9 - Type 2 diabetes mellitus without complications UA CC w/rflx Micro + Cult 4 Months R30.0 - Dysuria Microalbumin, Random (w Creat) 4 Months E11.9 - Type 2 diabetes mellitus without complications
--- OUTSIDE RECORDS SUMMARY | 2024-05-02 11:58 | XMS_ITS | Patient Health Record ---
Author Organization [facility] Address [address] [address] Care Team Providers Care Lead Data Entry Operator Name Role Phone LASHAE ANDERSON Primary Care Provider Ladan Smith Unavailable [phone] Allergies Allergen (clinical drug ingredient) Drug/Non Drug Allergy documented on EMR Reaction Allergy Type Onset Date Status diphenhydramine BENADRYL Unknown Drug Allergy A ctive Reason For Referral No Information Medications Medication SIG (Take, Route, Frequency, Duration) [...] MG as directed Orally unknown dose Active CoQ-10 30 MG 1 capsule with a meal Orally Once a day Active Apple Cider Vinegar 500 MG as directed Orally Active Rosuvastatin Calcium 5 MG Oral for 90 Active Cinnamon 500 MG as directed Orally Active Vitamin E Active Vitamin B Complex Orally Ac tive [...] (Standard) Question Answer Notes Tobacco use: Nonsmoker Problems Problem Type SNOMED Code ICD Code Onset Dates Problem Status W/U Status Risk Notes Problem Gynecological examination normal (280742053057696) Encounter for gynecological examination (general) (routine) without abnormal findings (Z01.419) Active confirmed Problem Hyperlipidemia (55900581) Other hyperlipidemia (E78.4) Active confirmed Problem Hyperlipidemia (32438208) Other and unspecified hyperlipidemia (272.4) Active confirmed Major Problem Benign essential hypertension (0027862) Essential hypertension, benign (401.1) Active confirmed Major Problem Menopausal symptom (57118552) Symptomatic menopausal or female climacteric states (627.2) Active confirmed Diag Problem Displacement of cervical intervertebral disc without myelopathy (47088248) 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.0) Active confirmed Major Problem Gynecological examination normal (552567921935033) Routine gynecological examination (V72.31) Active confirmed Problem Screening for malignant neoplasm of colon (472743000) Special screening for malignant neoplasms, colon (V76.51) Active confirmed Major Vital Signs Temperature 97.7 degrees Fahrenheit 01/14/2024 Blood pressure diastolic 80 mm Hg 01/14/2024 Height 63 in 01/14/2024 Blood pressure systolic 136 mm Hg 01/14/2024 Weight 165 lbs 01/14/2024 BMI 29.23 kg/m2 01/14/2024 Encounters Encounter Location Date Provider Diagnosis [address] [place] [address] 01/14/2024 Ladan Barry Encounter for screening mammogram [...] TEST, DUE IN 2024. Plan Of Treatment Pending Test Test Name Order Date MAMMOGRAM, SCREENING 01/07/2023 MAMMOGRAM, SCREENING 01/14/2024 MAMMOGRAM, SCREENING 04/11/2014 Urinalysis 04/11/2014 Urinalysis 01/14/2024 Urinalysis 01/03/2021 Urinalysis 01/06/2022 BONE DENSITY 01/07/2023 MM Digital Mammo Screening 01/03/2021 MM Digital Mammo Screening 11/17/2019 MM Digital Mammo Screening 01/06/2022 MM Digital Mammo Screening 01/07/2023 MM Digital Mammo Screening 01/14/2024 PELVIC ULTRASOUND W/TRANSVAGINAL 020 Next Appt Details Provider Name:Ladan Juwan Jamestammie luciana, 01/19/2025 10:40:00 AM, [address] [facility], [address], [place], [address], Insurance Providers Payer Name Payer Address Payer Phone Subscriber Number Group Number Insured Name Patient Relationship to Insured Coverage Start Date Coverage End Date [facility] [address] [place] [address] [id number] PHIL CHACKO Self - patient is the insured Medical (General) History Medical History History ICD Code Menopausal and female climacteric states N95.1 Other hyperlipidemia E78.4 Essential (primary) hypertension I10 Other cervical disc displacement, unspec ified cervical region M50.20 Unspecified abnormal cytological finding s in specimens from cervix uteri R87.619 Cervical high risk human papillomavirus (HPV) DNA test positive R87.810 Other abnormal and inconclusive findings on diagnostic imaging of breast R92.8 Inconclusive mammogram R92.2 Other abnormal cytological findings on s pecimens from cervix uteri R87.618 Atypical squamous cells of u ndetermined significance on cytologic smear of cervix (ASC-US) R87.610 Mammographic heterogeneous density, bila teral breasts R92.333 Surgical History Surgery Date(Month/Year) Colposcopy Right Oopherectomy [facility] Teeth Extraction Hospitalization History Reason Date(Month/Year) See Surgical Hx 4 Vaginal Deliveries
--- OUTSIDE RECORDS SUMMARY | 2024-05-02 11:58 | XMS_ITS ---
Author Organization [facility] Address [address] [facility] [address] [place] [address] Care Team Providers Care Invas Tech Name Role Phone LASHAE ANDERSON Primary Care Provider Ladan Smith Unavailable [phone] Allergies Allergen (clinical drug ingredient) Drug/Non Drug Allergy documented on EMR Reaction Allergy Type Onset Date Status diphenhydramine BENADRYL Unknown Drug Allergy A ctive Results Component Value Reference Range Notes Urinalysis Reviewed date:01/07/2023 10:27:20 AM Interpretation: Performing Lab: Notes/Report: PH 6.0 PROTEIN trace GLUCOSE NEG BLOOD Neg REASON FOR VISIT Annual INSTRUMENT TECHNICIAN Physical, Annual INSTRUMENT TECHNICIAN Physical 60-85+ Medications Medication SIG (Take, Route, [...] Status Risk Notes Problem Gynecological examination normal (890323802147093) Encounter for gynecological examination (general) (routine) without abnormal findings (Z01.419) Active confirmed Vital Signs Temperature 96.9 degrees Fahrenheit 01/08/20 23 Blood pressure systolic 140 mm Hg 01/08/20 23 Blood pressure diastolic 82 mm Hg 023 Height 63 in 01/07/2023 Weight 167 lbs 01/07/2023 BMI 29.58 kg/m2 01/07/2023 Encounters Encounter Location Date Provider Diagnosis [address] [address] 01/07/2023 Ladan Barry Encounter for gynecological examination [...] Reason: Provider Name:Ladan chowdhury, 01/19/2025 10:40:00 AM, [address] [place] [address], [address], [place], [address], Progress Notes * PHIL CHACKODOB:1960 ( 62 yo F)Acc No.[id number]:01/07/2023 PROGRESS NOTES Patient:?PHIL CHACKO Appointment Provider:?Ladan chowdhury M.D. :1960???Age:62 Y???Sex:Female D ate:01/07/2023 Address:[address] [place] [address], [facility] Pcp:LASHAE ANDERSON Subjective: * Chief Complaints: * ???Annual INSTRUMENT TECHNICIAN PhysicalAnnual INSTRUMENT TECHNICIAN Physical 60-85+ * HPI: ???New/Follow-up Patient Consult:? [...] adequate calcium via diet and supplementation ?Significant INSTRUMENT TECHNICIAN problems:?no significant glost tile sorter symptoms or problems * ROS:?general:?no?chest pain.?no?palpitations.?no?headache.?no?cough.?no?shortness of breath.?no?fever.?no?unexplained weight loss.?no?nausea/vomiting.?no?change in bowel movements.?no blood in stool.?no?genitourinary complaints.?no?skin complaints.? * Medical History:? 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 Control:?none.?Colonoscopy?03/2016.?INSTRUMENT TECHNICIAN HISTORY MISC.?08/07/15 DB counseling done. Suha risk 5.8%. No supplemental screening indicated.? * OB History:?Total pregnancies?5.?Total living children?4.?NVD?4.? * Surgical History:?Colposcopy Right Oopherectomy [place] Teeth Extraction * Hospitalization/Major Diagno stic Procedure:?4 [...] * ?GLUCOSE NEG * ?BLOOD Neg * El López 01/07/2023 10:00:33 AM >Ladan Barry 01/07/2023 10:26:37 AM > PAT IS PRE [...] * Images: Billing Information: * Visit Code:? 56688 Preventive Care Est Pt. Age 65 and over. * Procedure Codes:? * Sign off status: Completed true * Appointment Provider:?Ladan Barry M.D. Date:?01/07/2023 Generated for Cristela aguiar/Jael/Ijeomaitting on:?2024 11:58 AM EST History and Physical Notes * [...] WE WILL ORDER A BMD THIS YEAR. PFIZER X 3. Annual General Health Maintenance: Current breast complaints:: no breast pain, mass, discharge, or skin changes Urinary problems:: patient r eports no urinary health problems or bowel health problems Calcium intake:: takes adequ ate calcium via diet and supplementation Significant INSTRUMENT TECHNICIAN problems:: n o significant glost tile sorter symptoms or problems Examination Category Sub-Category Detail [...]
--- OUTSIDE RECORDS SUMMARY | 2024-05-02 11:59 | XMS_ITS ---
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 :1960???Age:63 Y???Sex:Female D ate:01/14/2024 Address:[address] [place] [address], [id number] Pcp:LASHAE ANDERSON Subjective: * Chief Complaints: * ???Annual WATER/WASTEWATER ENGINEER PhysicalAnnual WATER/WASTEWATER ENGINEER Physical 60-85+ * HPI: ???New/Follow-up Patient Consult:? [...] adequate calcium via diet and supplementation ?Significant WATER/WASTEWATER ENGINEER problems:?no significant him director symptoms or problems * ROS:?general:?no?chest pain.?no?palpitations.?no?headache.?no?cough.?no?shortness of breath.?no?fever.?no?unexplained weight loss.?no?nausea/vomiting.?no?change in bowel movements.?no blood in stool.?no?genitourinary complaints.?no?skin complaints.? * Medical History:? * Table Runner History:?/ Para?07/02.?Sexual activity?currently sexually active.?Last Pap Smear:?01/06/22 NIL, NEG HPV, 11/10/18 NIL, NEG HRHPV, 08/06/15 ASCUS, NEG HRHPV, 03/16/13, ASCUS, POS HRHPV.?Mammogram:?06/01/23 50-75% density, 01/06/22 50-75% density, 01/03/21 50-75% density, 12/08/19 50-75% density, 07/04/18 50-75% density, 04/28/17 50-75% density, 04/23/16 50-75% density, 04/23/2015 with additiional views Rt side- Benign.?LMP and menses?menopause.? Control:?none.?Colonoscopy?03/2016.?Bone Density:?06/03/23 Normal.?WATER/WASTEWATER ENGINEER HISTORY MISC.?08/07/15 DB counseling done. Suha risk 5.8%. No supplemental screening indicated.? * OB History:?Total pregnancies?5.?Total living children?4.?NVD?4.? * Surgical History:?Colposcopy Right Oopherectomy [place] Teeth Extraction * Hospitalization/Major Diagno stic Procedure:?4 [...] * Images: Billing Information: * Visit Code:? 99785 Preventive Care Est Pt. Age 65 and over. * Procedure Codes:? * Sign off status: Completed Addendum: * ? true * Appointment Provider:?Ladan Barry M.D. Date:?01/14/2024 Generated for Cristela aguiar/Jael/Ijeomaitting on:?2024 11:58 AM [...] ate calcium via diet and supplementation Significant WATER/WASTEWATER ENGINEER problems:: n o significant him director symptoms or problems Examination Category Sub-Category Detail [...]
== END 2024-05-02 10:54 | disposition home or self-care (01) ==
PROVIDERS: PCP Internal Medicine; Visit Provider Internal Medicine
DX: E78.00 Pure hypercholesterolemia, unspecified (principal); I10 Essential (primary) hypertension; R73.01 Impaired fasting glucose; R79.89 Other specified abnormal findings of blood chemistry; J30.9 Allergic rhinitis, unspecified; E55.9 Vitamin D deficiency, unspecified; G47.00 Insomnia, unspecified; F41.9 Anxiety disorder, unspecified; E66.3 Overweight

== ENCOUNTER → 2024-05-02 10:02 | Outpatient (BNVA) | payer OTHER, SELFPAY | PROVIDERS: PCP Internal Medicine; Visit Provider Internal Medicine | DX: E78.00 Pure hypercholesterolemia, unspecified (principal); I10 Essential (primary) hypertension; R73.01 Impaired fasting glucose; R79.89 Other specified abnormal findings of blood chemistry; J30.9 Allergic rhinitis, unspecified; E55.9 Vitamin D deficiency, unspecified; G47.00 Insomnia, unspecified; F41.9 Anxiety disorder, unspecified; E66.3 Overweight; Z68.30 Body mass index [BMI] 30.0-30.9, adult; Z79.899 Other long term (current) drug therapy | CPT/HCPCS: 96127 ==

== ENCOUNTER 2024-09-11 15:13 | Outpatient (REF) | payer OTHER, SELFPAY ==
[2024-09-11 15:30] LABS: MANUAL DIFF FLAG NO
[2024-09-11 16:21] LABS: Hematocrit 40.2 % (37.0-47.0); Hemoglobin 14.2 g/dl (12.0-16.0); Imm Gran Abs Auto 0.01 X10*3/uL (0.00-0.03); Imm Gran Pct Auto 0.2 % (0.0-0.4); Lymphocytes Absolute Auto 1.6 X10*3/uL (1.2-4.9); Mean Corpuscular HGB Conc 35.3 g/dl (31.0-35.0); Mean Corpuscular Hemoglobin 29.7 pg (27.0-33.0); Mean Corpuscular Volume 84.1 fL (80.0-98.0); NRBC Abs Auto 0.000 X10*3/uL (0.0-0.012); NRBC Pct Auto 0.0 /100WBC (0.0-0.2); Platelet Count 254 X10*3/uL (160-400); Red Blood Count 4.78 X10*6/uL (4.20-5.50); White Blood Count 6.4 X10*3/uL (4.8-10.8)
[2024-09-11 16:24] LABS: Hemoglobin A1C 166.4468 umol/L; Total Hemoglobin (HGBA1C) 3669.2045 umol/L
--- OUTSIDE RECORDS SUMMARY | 2024-09-11 16:30 | XMS_ITS | Patient Health Record ---
Author Organization [facility] Address [address] [address] Care Team Providers Care Tower Climber Name Role Phone LASHAE ANDERSON Primary Care Provider Ladan Smith Unavailable [phone] Allergies Allergen (clinical drug ingredient) Drug/Non Drug [...] 1000 MG 1 tablet Orally Once a day; Duration: 30 day(s) Active Glucosamine 500 MG 1 capsule with a meal Orally Once a day Active Garlic 100 MG as directed Orally unknown dose Active CoQ-10 30 MG 1 capsule with a meal Orally Once a day Active Apple Cider Vinegar 500 MG as directed Orally Active Rosuvastatin Calcium 5 MG Oral; Duration: 90 Active Cinnamon 500 MG as directed Orally Active Vitamin E Active Vitamin B Complex Orally Ac tive Zinc 25 MG 1 tablet Orally Once a day; Duration: 30 day(s) Active Social History Tobacco Use: [...] Status Risk Notes Problem Gynecological examination normal (985626707326279) Encounter for gynecological examination (general) (routine) without abnormal findings (Z01.419) Active confirmed Problem Hyperlipidemia (12709645) Other hyperlipidemia (E78.4) Active confirmed Problem Hyperlipidemia (68249062) Other and unspecified hyperlipidemia (272.4) Active confirmed Major Problem Benign essential hypertension (3325577) Essential hypertension, benign (401.1) Active confirmed Major Problem Menopausal symptom (25781167) Symptomatic menopausal or female climacteric states (627.2) Active confirmed Diag Problem Displacement of cervical intervertebral disc without myelopathy (88087453) 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.0) Active confirmed Major Problem Gynecological examination normal (786054634276306) Routine gynecological examination (V72.31) Active confirmed Problem Screening for malignant neoplasm of colon (138812449) Special screening for malignant neoplasms, colon (V76.51) Active confirmed Major Vital Signs Temperature 97.7 degrees Fahrenheit 01/14/2024 Blood pressure diastolic 80 mm Hg 01/14/2024 Height 63 in 01/14/2024 Blood pressure systolic 136 mm Hg 01/14/2024 Weight 165 lbs 01/14/2024 BMI 29.23 kg/m2 01/14/2024 Encounters Encounter Location Date Provider Diagnosis [address] [place] [address] 01/14/2024 Ladan Barry Encounter for screening mammogram [...] Test Test Name Order Date MAMMOGRAM, SCREENING 04/11/2014 MAMMOGRAM, SCREENING 01/07/2023 MAMMOGRAM, SCREENING 01/14/2024 Urinalysis 01/14/2024 Urinalysis 04/11/2014 Urinalysis 01/03/2021 Urinalysis 01/06/2022 BONE DENSITY 01/07/2023 MM Digital Mammo Screening 01/14/2024 MM Digital Mammo Screening 01/06/2022 MM Digital Mammo Screening 01/07/2023 MM Digital Mammo Screening 01/03/2021 MM Digital Mammo Screening 11/17/2019 PELVIC ULTRASOUND W/TRANSVAGINAL 020 Next Appt Details Provider Name:Ladan chowdhury, 01/19/2025 10:40:00 AM, [address], [address], [place], [address], Insurance Providers Payer Name Payer Address Payer Phone Subscriber Number Group Number Insured Name Patient Relationship to Insured Coverage Start Date Coverage End Date [facility] [address] [place] [address] [id number] PHIL CHACKO Self - patient is [...] Surgical History Surgery Date(Month/Year) Colposcopy Right Oopherectomy [place] Teeth Extraction Hospitalization History Reason Date(Month/Year) See Surgical Hx 4 Vaginal Deliveries
[2024-09-11 16:34] LABS: Appearance Urine Clear; Glucose Urine UA Negative (Negative); PH 6.0 (5.0-9.0); Specific Gravity - Urine <= 1.005 (1.005-1.025)
[2024-09-11 17:30] LABS: Alanine Aminotransferase 32 U/L (0-31); Albumin Level 4.9 g/dL (3.5-5.0); Alkaline Phosphatase 57 U/L (39-117); Anion Gap 14 (12-20); Aspartate Amino Transferase 26 U/L (5-31); Blood Urea Nitrogen 8 mg/dL (9-16); Calcium 9.7 mg/dL (8.4-10.2); Carbon Dioxide 26 mmol/L (22-29); Chloride 105 mmol/L (96-108); Cholesterol 193 mg/dL (<200); Estimated Glomerular Filt Rate > 60; HDL Cholesterol 65 mg/dL (>40); Potassium 3.1 mmol/L (3.3-5.1); Sodium 142 mmol/L (135-145); Total Protein 7.6 g/dL (6.5-8.0); Triglycerides 136 mg/dL (<150)
== END 2024-09-11 15:14 | disposition home or self-care (01) ==
LOC: HO.LAB 15:13
PROVIDERS: PCP Internal Medicine; Visit Provider Internal Medicine
DX: E78.00 Pure hypercholesterolemia, unspecified (principal); E55.9 Vitamin D deficiency, unspecified; E11.9 Type 2 diabetes mellitus without complications; D64.9 Anemia, unspecified; R30.0 Dysuria
CPT/HCPCS: 36415; 80053; 80061; 81003; 82043; 82306; 82570; 83036; 84443; 85025

== ENCOUNTER 2024-09-12 09:43 | Outpatient (AMB) | payer OTHER, SELFPAY ==
[2024-09-12 09:46] VITALS: BP 132/82; PULSE 75; O2SAT 98; BMI 28.9
--- NOTE | 2024-09-12 09:46 | A.OFFPC_ITS ---
Vital Signs 09/12/24 09:46 Height 5 ft 3 in Weight 163 lb 4 oz BMI 28.9 BP 132/82 Blood Pressure Location Lt brachial Position Sitting Pulse 75 Pulse Source Pulse Oximeter Pulse Oximetry (%) 98 Oxygen Delivery Method Room Air Intake Visit Reasons: 4 Month F/U Vocal Music Instructor Required: No Accompanied by: Self / Same As Patient Allergies latex Allergy (Unknown, Verified 09/12/24 11:58) Unknown diphenhydramine (From BENADRYL) Adverse Reaction (Severe, Verified 09/12/24 11:58) TACHYCARDIA/PALPITATIONS Medication List - Last Reconciled 09/12/24 by Zachariah Hickman MD ascorbate calcium (vitamin C) 500 mg PO DAILY cholecalciferol (vitamin D3) (Vitamin D3) 25 mcg PO DAILY coenzyme Q10 (Ultra CoQ10) 75 mg PO DAILY garlic 1,000 mg PO DAILY glucosamine HCl 1,500 mg PO DAILY hydrochlorothiazide 25 mg PO DAILY 90 days L. acidophilus/Bifid. animalis 2.5 billion cell (Daily Probiotic) caps PO .QD loratadine 10 mg PO DAILY PRN losartan 50 mg PO DAILY 90 days magnesium oxide 400 mg PO DAILY rosuvastatin 5 mg PO DAILY vitamin B complex 1 tab PO DAILY Tobacco use date assessed: 09/12/24 Dental Screening Dental Screen Date: 09/12/24 HPI 4 Month F/U HPI Details Patient comes in today for her follow up visit States that she feels okay She denies any headaches or dizziness Denies any chest pain, no SOB No nausea/vomiting, no abdominal pain No change in bowel habits noted She had her follow up labs done yesterday - to discuss her results [facility] Medical History Overweight (BMI 25.0-29.9) Anxiety Insomnia Elevated LFTs Allergic rhinitis Vitamin D deficiency Pure hypercholesterolemia Impaired fasting glucose Benign essential hypertension Surgical History Status post right oophorectomy (~2006) Family History Father Colon cancer Hypertension Stroke Mother Hypertension Heart attack Stroke Diabetes mellitus Daughter In good health Son In good health Son In good health Son In good health Sister No problems noted. Brother No problems noted. 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 1. Little interest or pleasure in doing things: not at all 2. Feeling down, depressed, or hopeless: not at all 3. Trouble falling or staying asleep, or sleeping too much: not at all 4. Feeling tired or having little energy: not at all 5. Poor appetite or overeating: not at all 6. Feeling bad about yourself - or that you are a failure or have let yourself or your family down: not at all 7. Trouble concentrating on things, such as reading the newspaper or watching television: not at all 8. Moving or speaking so slowly that other people could have noticed. Or the opposite - being so fidgety or restless that you have been moving around a lot more than usual: not at all 9. Thoughts that you would be better off or of hurting yourself in some way: not at all Total score: 0 Depression Screening Interpretation: Negative Depression Screening Done: Yes 59722 - PHQ-9 Billing: Yes Source: Developed by Drs. Cam Vizcarra, Aileen Cardoza, Tim Lao and colleagues, with an educational quinn from [employer] Thrive Questionnaire Date Thrive assessed: 09/12/24 I am a: Patient What is your living situation today?: I have a steady place to live Within the past 12 months, did the food you bought not last and you didn't have the money to get more?: Never true Within the past 12 months, did you worry whether your food would run out before you got money to buy more?: Never true Do you have trouble paying for medicines?: No Do you have trouble getting transportation to medical appointments?: No Do you have trouble paying your heating and electricity bill?: No Do you have trouble taking care of your child, family member or friend?: No Do you have trouble with day-to-day activities such as bathing, preparing meals, shopping, managing finances, etc.?: No Are you currently unemployed and looking for a job?: No Are you interested in more education?: No Please select the resources that you would like help with: None Currently or been in a relationship where the following occur: No concerns reported THRIVE Score: 0 AUDIT C Alcohol Use Questionnaire (AUDIT-C) 1. How often do you have a drink containing alcohol?: Never 3. How often do you have six or more drinks on one occasion?: Never Total Score: 0 Score Reviewed/Action Taken: Yes GENARO-7 AMB Questionnaire GENARO-7 Date GENARO - 7 assessed: 09/12/24 Feeling nervous, anxious, or on edge: 0 = Not at all Not being able to stop or control worryin = Not at all Worrying too much about different things: 0 = Not at all Trouble relaxin = Not at all Being so restless that it is hard to sit still: 0 = Not at all Becoming easily annoyed or irritable: 0 = Not at all Feeling afraid as if something awful might happen: 0 = Not at all Total GENARO-7 score (0-4 normal; 5-9 mild; 10-14 moderate; 15-21 severe): 0 Source: Developed by Drs. Cam Vizcarra, Aileen Cardoza, Tim Lao and colleagues, with an educational quinn from [employer] Review of Systems Const Denies chills, Denies fatigue, Denies fever(s) and Denies headache(s) ENT Denies dysphagia, Denies dizziness, Denies otalgia, Denies headache(s), Denies neck pain, Denies odynophagia and Denies sore throat Card Denies chest pain, Denies palpitations and Denies dyspnea Resp Denies chest congestion, Denies cough and Denies dyspnea GI Denies abdominal pain, Denies constipation, Denies dysphagia, Denies heartburn, Denies diarrhea, Denies nausea, Denies odynophagia and Denies vomiting Denies difficulty voiding, Denies nocturia, Denies dysuria and Denies urinary urgency Musc Denies back pain, Denies arthralgias and Denies neck pain Skin/Breast Denies rash Neuro Denies dizziness and Denies headache(s) Endo Denies fatigue and Denies palpitations Physical exam (Primary Care) Vital Signs: Last Vital Signs Pulse 75 09/12/24 09:46 BP 132/82 09/12/24 09:46 Pulse Ox 98 09/12/24 09:46 Oxygen Delivery Method Room Air 09/12/24 09:46 BMI result Body Mass Index 28.9 Tobacco/Smoking Status: Tobacco use Status Tobacco use date assessed 09/12/24 09/12/24 09:49 Patient Tobacco Use Status Never used Tobacco 09/12/24 09:49 e-Cigarette/Vaping Use Never Used 09/12/24 09:49 PHQ-9: PHQ-9 Score PHQ-9: Total score 0 09/12/24 10:29 Depression Screening Interpretation: Negative Thrive Assessment: Date of Thrive Assessment Date Thrive assessed 09/12/24 09/12/24 09:49 Currently or been in a relationship where the following occur: No concerns reported Const General: no acute distress and alert HENMT Ears: TM's normal bilaterally and EAC's normal Throat: Yes posterior oropharynx normal and Yes tonsils normal (no TP congestion noted) Neck Neck: Yes no lymphadenopathy and Yes supple Thyroid: Thyroid normal Resp Auscultation: clear to auscultation bilaterally, no rales and no wheezes Cardio Rate: regular rate Rhythm: regular rhythm Heart sounds: no murmurs GI Palpation (GI): Soft to palpation and nontender Auscultation: normal bowel sounds General: Yes no CVA tenderness Back/Spine/Pelvis Back: no CVA tenderness Thoracic/Lumbar Spine: No lumbar spinal tenderness Skin Rashes: no rashes Extrem General: Yes no clubbing, cyanosis or edema Results Reviewed Results Reviewed: Laboratory Tests 09/11/24 09/11/24 15:19 15:28 WBC 6.4 Hgb 14.2 Hct 40.2 Plt Count 254 Sodium 142 Potassium 3.1 L Creatinine 0.59 Estimated GFR > 60 Fasting Glucose 108 H Hemoglobin A1c % 6.3 H Calcium 9.7 AST 26 ALT 32 H Triglycerides 136 Cholesterol 193 LDL Cholesterol, Calc 101 H HDL Cholesterol 65 25-OH Vitamin D Total 49.5 TSH 0.56 Ur Specific [place] <= 1.005 Urine Protein Negative Urine Glucose (UA) Negative Urine Blood Negative Urine Nitrite Negative Ur Leukocyte Esterase Negative Coding Level of Care Code Est Pt Level 4 (10068) Diagnoses Pure hypercholesterolemia E78.00 Benign essential hypertension I10 Impaired fasting glucose R73.01 Elevated LFTs R79.89 Allergic rhinitis, unspecified seasonality, unspecified trigger J30.9 Allergic rhinitis seasonality: unspecified Allergic rhinitis trigger: unspecified Vitamin D deficiency E55.9 Insomnia, unspecified type G47.00 Insomnia type: unspecified Anxiety F41.9 Overweight (BMI 25.0-29.9) E66.3 Additional Codes PHQ-9 - 93553 - PHQ-9 Billing: Yes ([id number]) Assessment & Plan Assessment & Plan (1) Pure hypercholesterolemia: Code(s): E78.00 - Pure hypercholesterolemia, unspecified Category: Medical Plan: Results of her labs done yesterday reviewed and discussed with patient - her cholesterol levels have all improved slightly from previous Her serum TG level has dropped from 264 mg/dl to136 mg/dl Reinforced low cholesterol diet Continue Rosuvastatin 5 mg QD Will recheck her labs and fasting lipids in 4 months follow-up (2) Benign essential hypertension: Code(s): I10 - Essential (primary) hypertension Category: Medical Plan: Reinforced low sodium diet - goal is systolic BP of at least 120 to 130 mm or less Continue Losartan 50 mg QD and HCTZ 25 mg QD Patient is reminded to continue monitoring her blood pressure regularly (3) Impaired fasting glucose: Code(s): R73.01 - Impaired fasting glucose Category: Medical Plan: Her HgbA1c was at 6.3% on her labs done yesterday; was previously at 6.1% a few months ago Reinforced low calorie/low carb diet; exercise as tolerated (4) Elevated LFTs: Code(s): R79.89 - Other specified abnormal findings of blood chemistry Category: Medical Plan: Her LFTs have improved from previous - ALT is still borderline elevated Hepatitis profile done a couple of years ago came back negative; abdominal US done at [facility] in April 2022 revealed (+) hepatosteatosis, sonogram is otherwise normal Patient is again encouraged to continue to try to lose weight and exercise regularly Will continue to monitor her LFTs regularly (5) Allergic rhinitis: Code(s): J30.9 - Allergic rhinitis, unspecified Category: Medical Qualifiers: Allergic rhinitis seasonality: unspecified Allergic rhinitis trigger: unspecified Qualified Code(s): J30.9 - Allergic rhinitis, unspecified Plan: Continue Loratadine 10 mg QD as needed and Fluticasone nasal spray 50 mcg 1 s pray in each nostril daily as needed Patient has not needed to use her Albuterol inhaler in a while now (6) Vitamin D deficiency: Code(s): E55.9 - Vitamin D deficiency, unspecified Category: Medical Plan: Continue Vitamin D3 1000 units QD (7) Insomnia: Code(s): G47.00 - Insomnia, unspecified Category: Medical Qualifiers: Insomnia type: unspecified Qualified Code(s): G47.00 - Insomnia, unspecified Plan: Sleep hygiene reinforced She used to take Trazodone 50 mg once a day at bedtime as needed but states that she no longer needs to take any Rx (8) Anxiety: Code(s): F41.9 - Anxiety disorder, unspecified Category: Medical Plan: She used to take Lorazepam 0.5 mg 1 to 2 times a day as needed but also states that she has not needed to take Lorazepam in a long time now (9) Overweight (BMI 25.0-29.9): Code(s): E66.3 - Overweight Category: Medical Plan: Reinforced diet/exercise as tolerated/lose weight Plan Follow up in 4 months Orders: Orders Hemoglobin A1c 4 Months R73.01 - Impaired fasting glucose Lipid Panel 4 Months E78.00 - Pure hypercholesterolemia, unspecified Microalbumin, Random (w Creat) 4 Months E11.9 - Type 2 diabetes mellitus without complications Complete Blood Count Auto Diff 4 Months D64.9 - Anemia, unspecified TSH reflex Free T4 4 Months E78.00 - Pure hypercholesterolemia, unspecified UA CC w/rflx Micro + Cult 4 Months R30.0 - Dysuria Comprehensive [place]. Panel Fast 4 Months E78.00 - Pure hypercholesterolemia, unspecified Vitamin D 25-OH Total 4 Months E55.9 - Vitamin D deficiency, unspecified Vitamin B12 and Folate 4 Months E53.8 - Deficiency of other specified B group vitamins
--- OUTSIDE RECORDS SUMMARY | 2024-09-12 10:26 | XMS_ITS | Patient Health Record ---
Author Organization [facility] Address [address] [address] Care Team Providers Care Men'S Designer Name Role Phone LASHAE ANDERSON Primary Care Provider Ladan Smith Unavailable [phone] Allergies Allergen (clinical drug ingredient) Drug/Non Drug [...] Status Risk Notes Problem Gynecological examination normal (405155698034475) Encounter for gynecological examination (general) (routine) without abnormal findings (Z01.419) Active confirmed Problem Hyperlipidemia (31618298) Other hyperlipidemia (E78.4) Active confirmed Problem Hyperlipidemia (20661759) Other and unspecified hyperlipidemia (272.4) Active confirmed Major Problem Benign essential hypertension (2686444) Essential hypertension, benign (401.1) Active confirmed Major Problem Menopausal symptom (33382255) Symptomatic menopausal or female climacteric states (627.2) Active confirmed Diag Problem Displacement of cervical intervertebral disc without myelopathy (20286430) 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.0) Active confirmed Major Problem Gynecological examination normal (057986208896087) Routine gynecological examination (V72.31) Active confirmed Problem Screening for malignant neoplasm of colon (983385543) Special screening for malignant neoplasms, colon (V76.51) Active confirmed Major Vital Signs Temperature 97.7 degrees Fahrenheit 01/14/2024 Blood pressure diastolic 80 mm Hg 01/14/2024 Height 63 in 01/14/2024 Blood pressure systolic 136 mm Hg 01/14/2024 Weight 165 lbs 01/14/2024 BMI 29.23 kg/m2 01/14/2024 Encounters Encounter Location Date Provider Diagnosis [address] [place] [address] 01/14/2024 Ladan Barry Encounter for screening mammogram [...] W/TRANSVAGINAL 020 Next Appt Details Provider Name:Ladan So sergzander, 01/19/2025 10:40:00 AM, [address], [address], [place], [address], Insurance Providers Payer Name Payer Address Payer Phone Subscriber Number Group Number Insured Name Patient Relationship to Insured Coverage Start Date Coverage End Date [facility] [address] [place] [address] [phone] [id number] PHIL CHACKO Self - patient is [...] Surgical History Surgery Date(Month/Year) Colposcopy Right Oopherectomy [place] Teeth Extraction Hospitalization History Reason Date(Month/Year) See Surgical Hx 4 Vaginal Deliveries
== END 2024-09-12 10:36 | disposition home or self-care (01) ==
LOC: HO.HMCH 09:44
PROVIDERS: PCP Internal Medicine; Visit Provider Internal Medicine
DX: E78.00 Pure hypercholesterolemia, unspecified (principal); I10 Essential (primary) hypertension; R73.01 Impaired fasting glucose; R79.89 Other specified abnormal findings of blood chemistry; J30.9 Allergic rhinitis, unspecified; E55.9 Vitamin D deficiency, unspecified; G47.00 Insomnia, unspecified; F41.9 Anxiety disorder, unspecified; E66.3 Overweight

== ENCOUNTER → 2024-09-12 09:43 | Outpatient (BNVA) | payer OTHER, SELFPAY | PROVIDERS: PCP Internal Medicine; Visit Provider Internal Medicine | DX: I10 Essential (primary) hypertension (principal); E78.00 Pure hypercholesterolemia, unspecified; R73.01 Impaired fasting glucose; R79.89 Other specified abnormal findings of blood chemistry; J30.9 Allergic rhinitis, unspecified; G47.00 Insomnia, unspecified; F41.9 Anxiety disorder, unspecified; E66.3 Overweight; E55.9 Vitamin D deficiency, unspecified; Z68.28 Body mass index [BMI] 28.0-28.9, adult | CPT/HCPCS: 96127 ==

== ENCOUNTER 2025-01-15 14:44 | Outpatient (AMB) | payer OTHER, SELFPAY ==
[2025-01-15 15:07] VITALS: BP 126/74; PULSE 81; O2SAT 97; BMI 29.9
--- NOTE | 2025-01-15 15:07 | A.OFFPC_ITS ---
Vital Signs 01/15/25 15:07 Height 5 ft 3 in Weight 169 lb BMI 29.9 BP 126/74 Blood Pressure Location Lt brachial Position Sitting Pulse 81 Pulse Source Pulse Oximeter Pulse Oximetry (%) 97 Oxygen Delivery Method Room Air Intake Visit Reasons: DM, hyperlipidemia, HTN Breast Worker Required: No Accompanied by: Self / Same As Patient Allergies latex Allergy (Unknown, Verified 01/15/25 15:46) Unknown diphenhydramine (From BENADRYL) Adverse Reaction (Severe, Verified 01/15/25 15:46) TACHYCARDIA/PALPITATIONS Medication List - Last Reconciled 01/15/25 by Zachariah Hickman MD ascorbate calcium (vitamin C) 500 mg PO DAILY cholecalciferol (vitamin D3) (Vitamin D3) 25 mcg PO DAILY coenzyme Q10 (Ultra CoQ10) 75 mg PO DAILY garlic 1,000 mg PO DAILY glucosamine HCl 1,500 mg PO DAILY hydrochlorothiazide 25 mg PO DAILY 90 days L. acidophilus-Bifid. animalis 2.5 billion cell (Daily Probiotic) caps PO .QD loratadine 10 mg PO DAILY PRN losartan 50 mg PO DAILY 90 days magnesium oxide 400 mg PO DAILY rosuvastatin 5 mg PO DAILY vitamin B complex 1 tab PO DAILY Tobacco use date assessed: 01/15/25 Dental Screening Dental Screen Date: 01/15/25 Did you have a dental visit in the last 12 months?: Yes Did you have a dental problem in the last 6 months where you did not have access to dental care?: No Was dental information given to patient?: Patient has dentist HPI DM, hyperlipidemia, HTN HPI Details Patient comes in today for her follow up visit States that she feels okay She denies any headaches or dizziness Denies any chest pain, no SOB No nausea/vomiting, no abdominal pain No change in bowel habits noted States that she had her follow up labs done at [facility] last week - to discuss her results [facility] Medical History Overweight (BMI 25.0-29.9) Anxiety Insomnia Elevated LFTs Allergic rhinitis Vitamin D deficiency Pure hypercholesterolemia Impaired fasting glucose Benign essential hypertension Surgical History Status post right oophorectomy (~2006) Family History Father Colon cancer Hypertension Stroke Mother Hypertension Heart attack Stroke Diabetes mellitus Daughter In good health Son In good health Son In good health Son In good health Sister No problems noted. Brother No problems noted. 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 1. Little interest or pleasure in doing things: not at all 2. Feeling down, depressed, or hopeless: not at all 3. Trouble falling or staying asleep, or sleeping too much: not at all 4. Feeling tired or having little energy: not at all 5. Poor appetite or overeating: not at all 6. Feeling bad about yourself - or that you are a failure or have let yourself or your family down: not at all 7. Trouble concentrating on things, such as reading the newspaper or watching television: not at all 8. Moving or speaking so slowly that other people could have noticed. Or the opposite - being so fidgety or restless that you have been moving around a lot more than usual: not at all 9. Thoughts that you would be better off or of hurting yourself in some way: not at all Total score: 0 Depression Screening Interpretation: Negative Depression Screening Done: Yes 63166 - PHQ-9 Billing: Yes Source: Developed by Drs. Cam Vizcarra, Aileen Cardoza, Tim Lao and colleagues, with an educational quinn from [employer]. Thrive Questionnaire Date Thrive assessed: 01/15/25 I am a: Patient What is your living situation today?: I have a steady place to live Within the past 12 months, did the food you bought not last and you didn't have the money to get more?: Never true Within the past 12 months, did you worry whether your food would run out before you got money to buy more?: Never true Do you have trouble paying for medicines?: No Do you have trouble getting transportation to medical appointments?: No Do you have trouble paying your heating and electricity bill?: No Do you have trouble taking care of your child, family member or friend?: No Do you have trouble with day-to-day activities such as bathing, preparing meals, shopping, managing finances, etc.?: No Are you currently unemployed and looking for a job?: No Are you interested in more education?: No Please select the resources that you would like help with: None Currently or been in a relationship where the following occur: No concerns reported THRIVE Score: 0 AUDIT C Alcohol Use Questionnaire (AUDIT-C) 1. How often do you have a drink containing alcohol?: Never 3. How often do you have six or more drinks on one occasion?: Never Total Score: 0 Score Reviewed/Action Taken: Yes GENARO-7 AMB Questionnaire GENARO-7 Date GENARO - 7 assessed: 01/15/25 Feeling nervous, anxious, or on edge: 0 = Not at all Not being able to stop or control worryin = Not at all Worrying too much about different things: 0 = Not at all Trouble relaxin = Not at all Being so restless that it is hard to sit still: 0 = Not at all Becoming easily annoyed or irritable: 0 = Not at all Feeling afraid as if something awful might happen: 0 = Not at all Total GENARO-7 score (0-4 normal; 5-9 mild; 10-14 moderate; 15-21 severe): 0 Source: Developed by Drs. Cam Vizcarra, Aileen aCrdoza, Tim Lao and colleagues, with an educational quinn from [employer]. Review of Systems Const Denies chills, Denies fatigue, Denies fever(s) and Denies headache(s) ENT Denies dysphagia, Denies dizziness, Denies otalgia, Denies headache(s), Denies neck pain, Denies odynophagia and Denies sore throat Card Denies chest pain, Denies palpitations and Denies dyspnea Resp Denies chest congestion, Denies cough and Denies dyspnea GI Denies abdominal pain, Denies constipation, Denies dysphagia, Denies heartburn, Denies diarrhea, Denies nausea, Denies odynophagia and Denies vomiting Denies difficulty voiding, Denies nocturia, Denies dysuria and Denies urinary urgency Musc Denies back pain, Denies arthralgias and Denies neck pain Skin/Breast Denies rash Neuro Denies dizziness and Denies headache(s) Endo Denies fatigue and Denies palpitations Physical exam (Primary Care) Vital Signs: Last Vital Signs Pulse 81 01/15/25 15:07 BP 126/74 01/15/25 15:07 Pulse Ox 97 01/15/25 15:07 Oxygen Delivery Method Room Air 01/15/25 15:07 BMI result Body Mass Index 29.9 Tobacco/Smoking Status: Tobacco use Status Tobacco use date assessed 01/15/25 01/15/25 15:09 Patient Tobacco Use Status Never used Tobacco 01/15/25 15:09 e-Cigarette/Vaping Use Never Used 01/15/25 15:09 PHQ-9: PHQ-9 Score PHQ-9: Total score 0 01/15/25 15:34 Depression Screening Interpretation: Negative Thrive Assessment: Date of Thrive Assessment Date Thrive assessed 01/15/25 01/15/25 15:09 Currently or been in a relationship where the following occur: No concerns reported Const General: no acute distress and alert HENMT Ears: TM's normal bilaterally and EAC's normal Throat: Yes posterior oropharynx normal and Yes tonsils normal (no TP congestion noted) Neck Neck: Yes supple and No lymphadenopathy Thyroid: Thyroid normal Resp Auscultation: clear to auscultation bilaterally, no rales and no wheezes Cardio Rate: regular rate Rhythm: regular rhythm Heart sounds: no murmurs GI Palpation (GI): Soft to palpation and nontender Auscultation: normal bowel sounds General: Yes no CVA tenderness Back/Spine/Pelvis Back: no CVA tenderness Thoracic/Lumbar Spine: No lumbar spinal tenderness Skin Rashes: no rashes Extrem General: Yes no clubbing, cyanosis or edema Coding Level of Care Code Est Pt Level 4 (15929) Diagnoses Pure hypercholesterolemia E78.00 Benign essential hypertension I10 Impaired fasting glucose R73.01 Elevated LFTs R79.89 Allergic rhinitis, unspecified seasonality, unspecified trigger J30.9 Allergic rhinitis trigger: unspecified Allergic rhinitis seasonality: unspecified Vitamin D deficiency E55.9 Insomnia, unspecified type G47.00 Insomnia type: unspecified Anxiety F41.9 Overweight (BMI 25.0-29.9) E66.3 Additional Codes PHQ-9 - 94772 - PHQ-9 Billing: Yes ([id number]) Assessment & Plan Assessment & Plan (1) Pure hypercholesterolemia: Code(s): E78.00 - Pure hypercholesterolemia, unspecified Category: Medical Plan: Advised patient that we have not yet received a copy of her lab results that were done at [facility] last week, and that we will try to follow up on these BARBIE Reinforced low cholesterol diet Continue Rosuvastatin 5 mg QD Will recheck her labs and fasting lipids in 4 months follow-up (2) Benign essential hypertension: Code(s): I10 - Essential (primary) hypertension Category: Medical Plan: Reinforced low sodium diet - goal is systolic BP of at least 120 to 130 mm or less Continue Losartan 50 mg QD and HCTZ 25 mg QD Patient is reminded to continue monitoring her blood pressure regularly (3) Impaired fasting glucose: Code(s): R73.01 - Impaired fasting glucose Category: Medical Plan: Her HgbA1c was at 6.3% on her labs done; was at 6.1% earlier this year Reinforced low calorie/low carb diet; exercise as tolerated (4) Elevated LFTs: Code(s): R79.89 - Other specified abnormal findings of blood chemistry Category: Medical Plan: Her LFTs have improved from previous but her serum ALT was still borderline elevated on her labs done a few months ago Hepatitis profile done a couple of years ago came back negative; abdominal US done at [facility] in April 2022 revealed (+) hepatosteatosis, sonogram is otherwise normal Patient is again encouraged to continue to try to lose weight and exercise regularly Will continue to monitor her LFTs regularly and we will try to follow up the results of her labs done at [facility] last week (5) Allergic rhinitis: Code(s): J30.9 - Allergic rhinitis, unspecified Category: Medical Qualifiers: Allergic rhinitis trigger: unspecified Allergic rhinitis seasonality: unspecified Qualified Code(s): J30.9 - Allergic rhinitis, unspecified Plan: Continue Loratadine 10 mg QD as needed and Fluticasone nasal spray 50 mcg 1 spray in each nostril daily as needed Patient has not needed to use her Albuterol inhaler in a while now (6) Vitamin D deficiency: Code(s): E55.9 - Vitamin D deficiency, unspecified Category: Medical Plan: Continue Vitamin D3 1000 units QD (7) Insomnia: Code(s): G47.00 - Insomnia, unspecified Category: Medical Qualifiers: Insomnia type: unspecified Qualified Code(s): G47.00 - Insomnia, unspecified Plan: Sleep hygiene reinforced She used to take Trazodone 50 mg once a day at bedtime as needed but states that she no longer needs to take her Rx She is currently just taking OTC Magnesium supplements to help with her restless legs and states that Magnesium has also helped her a lot with her sleep (8) Anxiety: Code(s): F41.9 - Anxiety disorder, unspecified Category: Medical Plan: She used to take Lorazepam 0.5 mg 1 to 2 times a day as needed but also states that she has not needed to take Lorazepam in a long time now (9) Overweight (BMI 25.0-29.9): Code(s): E66.3 - Overweight Category: Medical Plan: Reinforced diet/exercise as tolerated/lose weight Plan Follow up in 4 months Orders: Orders Hemoglobin A1c 4 Months E11.9 - Type 2 diabetes mellitus without complications Microalbumin, Random (w Creat) 4 Months E11.9 - Type 2 diabetes mellitus without complications TSH reflex Free T4 4 Months E78.00 - Pure hypercholesterolemia, unspecified Vitamin D 25-OH Total 4 Months E55.9 - Vitamin D deficiency, unspecified Complete Blood Count Auto Diff 4 Months D64.9 - Anemia, unspecified Comprehensive [place]. Panel Fast 4 Months E78.00 - Pure hypercholesterolemia, unspecified Lipid Panel 4 Months E78.00 - Pure hypercholesterolemia, unspecified UA CC w/rflx Micro + Cult 4 Months R30.0 - Dysuria
== END 2025-01-15 16:03 | disposition home or self-care (01) ==
LOC: HO.HMCH 14:44
PROVIDERS: PCP Internal Medicine; Visit Provider Internal Medicine
DX: E78.00 Pure hypercholesterolemia, unspecified (principal); I10 Essential (primary) hypertension; R73.01 Impaired fasting glucose; R79.89 Other specified abnormal findings of blood chemistry; J30.9 Allergic rhinitis, unspecified; E55.9 Vitamin D deficiency, unspecified; G47.00 Insomnia, unspecified; F41.9 Anxiety disorder, unspecified; E66.3 Overweight

== ENCOUNTER → 2025-01-15 14:44 | Outpatient (BNVA) | payer OTHER, SELFPAY | PROVIDERS: PCP Internal Medicine; Visit Provider Internal Medicine | DX: I10 Essential (primary) hypertension (principal); E78.00 Pure hypercholesterolemia, unspecified; R73.01 Impaired fasting glucose; R79.89 Other specified abnormal findings of blood chemistry; J30.9 Allergic rhinitis, unspecified; E55.9 Vitamin D deficiency, unspecified; G47.00 Insomnia, unspecified; F41.9 Anxiety disorder, unspecified; E66.3 Overweight; R30.0 Dysuria | CPT/HCPCS: 96127 ==